=== PATIENT | male | born 1945 | race Caucasian/White ===

== ENCOUNTER 2018-09-28 15:56 | Inpatient (IN) | payer OTHER ==
[~2018-09-28] VITALS: Ht 170.2 cm; Wt 87.5 kg
[2018-09-28] MEDS ORDERED: NITROGLYCERIN SUBLINGUAL 0.4 MG BOTTLE OF 25. SL PRN ×2 (16:30→19:45)
[2018-09-28] MEDS ORDERED: ONDANSETRON PF 4 MG/2 ML VIAL. IV ONE (16:30)
[2018-09-28] MEDS ORDERED: ASPIRIN 325 MG TABLET PO ONE (16:30)
[2018-09-28 16:41] LABS: BASO # 0.1 x10^3/uL (0.0-0.2); BASO % 0 % (0-3); EOS # 0.2 x10^3/uL (0.0-0.7); EOS % 1 % (0-3); HEMATOCRIT 41.2 % (39.0-53.0); HEMOGLOBIN 13.8 g/dL (13.0-17.5); LYMPH # 3.4 x10^3/uL (1.0-4.8); LYMPH % 22 % (24-48); MEAN CORPUSCULAR HEMOGLOBIN 29 pg (25-35); MEAN CORPUSCULAR HGB CONC 34 g/dL (31-37); MEAN CORPUSCULAR VOLUME 85 fL (79-100); MONO # 0.8 x10^3/uL (0.0-1.1); MONO % 5 % (0-9); NEUT % 71 % (31-73); PLATELET COUNT 181 x10^3/uL (140-400); RED BLOOD COUNT 4.85 x10^6/uL (4.30-5.70); RED CELL DISTRIBUTION WIDTH 13.2 % (11.5-14.5); WHITE BLOOD COUNT 15.4 x10^3/uL (4.0-11.0)
[2018-09-28] MEDS ORDERED: IV NORMAL SALINE 1000ML BAG 1,000 ML IV ONE ×2 (16:45→20:00)
[2018-09-28] MEDS ORDERED: ASPIRIN CHEWABLE 81 MG TABLET. PO ONE (16:45)
[2018-09-28 16:51] LABS: PROTHROMBIN TIME PATIENT 14.4 SEC (11.7-14.0)
--- NOTE | 2018-09-28 16:56 | RAD ---
EXAM: CHEST 1 VIEW History: Difficulty breathing, midchest pain COMPARISON: None available. TECHNIQUE: Single portable radiograph of the chest FINDINGS: The cardiac silhouette is unremarkable. The lungs are clear bilaterally. The costophrenic sulci are clear and well demarcated. IMPRESSION: No radiographic evidence of an acute cardiopulmonary process. Electronically signed by: Dillan Gomez MD (09/28/2018 4:53 PM) [facility]
--- NOTE | 2018-09-28 16:58 | PHYS DOC ---
Past Medical History Past Medical History: Diabetes-Type II, Hypertension Past Surgical History: Other Additional Past Surgical Histo: SKIN GRAFT Alcohol Use: None Drug Use: None Adult General Chief Complaint Chief Complaint: CHEST PAIN HPI HPI Patient is a 73 year old male with history of diabetes to 2, hypertension, who presents today complaining of a sharp and constant 8 out of 10 right sided chest pain as well as epigastric abdominal pain that began 2 hours prior to coming to the ED. Patient is also complaining of nausea, vomiting, that began at the same time. Patient denies anything specifically exacerbating or relieving his symptoms. He states he did not take anything to relieve his symptoms Review of Systems Review of Systems Constitutional: Denies fever or chills [] Eyes: Denies change in visual acuity, redness, or eye pain [] HENT: Denies nasal congestion or sore throat [] Respiratory: Denies cough or shortness of breath [] Cardiovascular: Reports chest pain GI: Reports epigastric abdominal pain, nausea and vomiting, denies bloody stools or diarrhea [] : Denies dysuria or hematuria [] Musculoskeletal: Denies back pain or joint pain [] Integument: Denies rash or skin lesions [] Neurologic: Denies headache, focal weakness or sensory changes [] All other systems were reviewed and found to be within normal limits, except as documented in this note. Current Medications Current Medications Current Medications Medications (Trade) Dose Ordered Sig/Itz Start Time Stop Time Status Last Admin Dose Admin Aspirin (Bobbi Aspirin) 325 mg 1X ONCE 09/28/18 16:30 09/28/18 16:42 DC Aspirin (Children'S Aspirin) 324 mg 1X ONCE 09/28/18 16:45 09/28/18 16:46 DC 09/28/18 16:45 324 MG Nitroglycerin (Nitrostat) 0.4 mg PRN Q5MIN PRN 09/28/18 16:30 09/28/18 19:38 DC 09/28/18 16:35 0.4 MG Ondansetron HCl (Zofran) 4 mg 1X ONCE 09/28/18 16:30 09/28/18 16:42 DC 09/28/18 16:34 4 MG Sodium Chloride 1,000 ml @ 1,000 mls/hr 1X ONCE 09/28/18 16:45 09/28/18 17:44 DC 09/28/18 16:47 1,000 MLS/HR Allergies Allergies Allergies Coded Allergies Type Severity Reaction Last Updated Verified No Known Drug Allergies 09/28/18 No Physical Exam Physical Exam Constitutional: Pale appearing. Well developed, well nourished, HENT: Normocephalic, atraumatic, bilateral external ears normal, oropharynx moist, no oral exudates, nose normal. [] Eyes: PERRLA, EOMI, conjunctiva normal, no discharge. [] Neck: Normal range of motion, no tenderness, supple, no stridor. [] Cardiovascular:Heart rate regular rhythm, no murmur [] Lungs & Thorax: Bilateral breath sounds clear to auscultation [] Abdomen: Actively vomiting. Bowel sounds normal, soft, no tenderness, no masses , no pulsatile masses. [] Skin: Warm, dry, no erythema, no rash. [] Back: No tenderness, no CVA tenderness. [] Extremities: No tenderness, no cyanosis, no clubbing, ROM intact, no edema. [] Neurologic: Alert and oriented X 3, normal motor function, normal sensory function, no focal deficits noted. [] Psychologic: appears anxious Current Patient Data Vital Signs Vital Signs Date Time Temp Pulse Resp B/P (MAP) Pulse Ox O2 Delivery O2 Flow Rate FiO2 09/28/18 16:35 76 131/61 09/28/18 16:12 98.0 24 97 Room Air 98.0 Lab Values Laboratory Tests Test 09/28/18 16:28 09/28/18 16:54 White Blood Count 15.4 x10^3/uL (4.0-11.0) H Red Blood Count 4.85 x10^6/uL (4.30-5.70) Hemoglobin 13.8 g/dL (13.0-17.5) Hematocrit 41.2 % (39.0-53.0) Mean Corpuscular Volume 85 fL (79-100) Mean Corpuscular Hemoglobin 29 pg (25-35) Mean Corpuscular Hemoglobin Concent 34 g/dL (31-37) Red Cell Distribution Width 13.2 % (11.5-14.5) Platelet Count 181 x10^3/uL (140-400) Neutrophils (%) (Auto) 71 % (31-73) Lymphocytes (%) (Auto) 22 % (24-48) L Monocytes (%) (Auto) 5 % (0-9) Eosinophils (%) (Auto) 1 % (0-3) Basophils (%) (Auto) 0 % (0-3) Neutrophils # (Auto) 11.0 x10^3uL (1.8-7.7) H Lymphocytes # (Auto) 3.4 x10^3/uL (1.0-4.8) Monocytes # (Auto) 0.8 x10^3/uL (0.0-1.1) Eosinophils # (Auto) 0.2 x10^3/uL (0.0-0.7) Basophils # (Auto) 0.1 x10^3/uL (0.0-0.2) Prothrombin Time 14.4 SEC (11.7-14.0) H Prothrombin Time INR 1.2 (0.8-1.1) H Sodium Level 136 mmol/L (136-145) Potassium Level 5.2 mmol/L (3.5-5.1) H Chloride Level 100 mmol/L (98-107) Carbon Dioxide Level 25 mmol/L (21-32) Anion Gap 11 (6-14) Blood Urea Nitrogen 18 mg/dL (8-26) Creatinine 1.6 mg/dL (0.7-1.3) H Estimated GFR (Cockcroft-Gault) 42.5 BUN/Creatinine Ratio 11 (6-20) Glucose Level 258 mg/dL (70-99) H Calcium Level 9.1 mg/dL (8.5-10.1) Magnesium Level 1.5 mg/dL (1.8-2.4) L Total Bilirubin 2.1 mg/dL (0.2-1.0) H Aspartate Amino Transferase (AST) 165 U/L (15-37) H Alanine Aminotransferase (ALT) 106 U/L (16-63) H Alkaline Phosphatase 81 U/L (46-116) Creatine Kinase 119 U/L (39-308) Creatine Kinase MB (Mass) 1.9 ng/mL (0.0-3.6) Creatine Kinase MB Relative Index 1.6 % (0-4) Troponin I Quantitative < 0.017 ng/mL (0.000-0.055) IR-Wlq-F-Type Natriuretic Peptide 66 pg/mL (0-124) Total Protein 8.3 g/dL (6.4-8.2) H Albumin 4.3 g/dL (3.4-5.0) Albumin/Globulin Ratio 1.1 (1.0-1.7) Thyroid Stimulating Hormone (TSH) 3.481 uIU/mL (0.358-3.74) Ethyl Alcohol Level < 10 mg/dL (0-10) Influenza Type A Antigen Negative (NEGATIVE) Influenza Type B Antigen Negative (NEGATIVE) Laboratory Tests 09/28/18 16:28 Laboratory Tests 09/28/18 16: EKG EKG 16:[address] Almodovar sinus rhythm heart rate 76 no STEMI[] Radiology/Procedures Radiology/Procedures []PROCEDURE: ABDOMEN COMPLETE Abdominal ultrasound complete: Reason for examination: Chest pain with upper epigastric pain. The pancreas is poorly visualized due to bowel gas. The visualized portion of the inferior vena cava and aorta showed no gross abnormalities but the mid and distal abdominal aorta and distal inferior vena cava are poorly visualized. The liver shows diffuse fatty infiltration without a focal lesion and measures 17.2 cm in greatest dimension. The gallbladder shows wall thickening at 3.9 mm and tiny stones or sludge present. The common bile duct is normal in caliber at 5 mm. The right kidney measures 11.7 x 4.9 x 4.8 cm in greatest dimension. The left kidney measures 12.9 x 4.7 x 5.0 cm in greatest dimension. There appears be good cortical medullary differentiation bilaterally in the kidneys with no renal masses or hydronephrosis. The spleen is enlarged at 16.1 cm without a focal lesion. No free fluid is evident. IMPRESSION: Fatty infiltration of the liver without a focal lesion. Gallbladder wall thickening with small stones or sludge in the gallbladder. Enlarged spleen at 16.1 cm without a focal lesion. Electronically signed by: Tia Brown MD (09/28/2018 7:35 PM) [facility] DICTATED and SIGNED BY: TIA BROWN MD DATE: 09/28/181934 Course & Med Decision Making Course & Med Decision Making Pertinent Labs and Imaging studies reviewed. (See chart for details) This is a 73-year-old male patient presenting to the ED today with chest pain, nausea and vomiting. Symptoms began 2 hours ago. EKG is negative, troponin is normal, CBC with a WBC of 15.4, BUN 18, creatinine 1.6, glucose 258, anion gap is normal, bilirubin 2.1, AST 165, [id number], ALK is normal. Abdominal ultrasound-Fatty infiltration of the liver without a focal lesion. Gallbladder wall thickening with small stones or sludge in the gallbladder. Enlarged spleen at 16.1 cm without a focal lesion. Routine General surgery consult placed Routine consult placed for cardiology. Consulted with Dr. Rees who accepted patient for admission Dragon Disclaimer Dragon Disclaimer This electronic medical record was generated, in whole or in part, using a voice recognition dictation system. Departure Departure Impression: Primary Impression: Chest pain Additional Impressions: Transaminitis Nausea and vomiting Disposition: ADMITTED INPATIENT Condition: STABLE Referrals: UNKNOWN PCP NAME (PCP) JONAS REES MD Problem Qualifiers Primary Impression: Chest pain Chest pain type: unspecified Qualified Codes: R07.9 - Chest pain, unspecified Additional Impressions: Nausea and vomiting Vomiting type: unspecified Vomiting Intractability: unspecified Qualified Codes: R11.2 - Nausea with vomiting, unspecified JESUS LARES APRN Sep 28, 2018 16:57
[2018-09-28 17:00] LABS: CALCIUM 9.1 mg/dL (8.5-10.1); CREATININE 1.6 mg/dL (0.7-1.3); GFR 42.5; POTASSIUM 5.2 mmol/L (3.5-5.1)
[2018-09-28 17:05] LABS: ALBUMIN 4.3 g/dL (3.4-5.0); ALBUMIN/GLOBULIN RATIO 1.1 (1.0-1.7); MAGNESIUM 1.5 mg/dL (1.8-2.4); TOTAL BILIRUBIN 2.1 mg/dL (0.2-1.0); TOTAL PROTEIN 8.3 g/dL (6.4-8.2)
[2018-09-28 17:20] LABS: INFLUENZA A PATIENT NEGATIVE (NEGATIVE); INFLUENZA B PATIENT NEGATIVE (NEGATIVE)
--- NOTE | 2018-09-28 19:38 | RAD ---
Abdominal ultrasound complete: Reason for examination: Chest pain with upper epigastric pain. The pancreas is poorly visualized due to bowel gas. The visualized portion of the inferior vena cava and aorta showed no gross abnormalities but the mid and distal abdominal aorta and distal inferior vena cava are poorly visualized. The liver shows diffuse fatty infiltration without a focal lesion and measures 17.2 cm in greatest dimension. The gallbladder shows wall thickening at 3.9 mm and tiny stones or sludge present. The common bile duct is normal in caliber at 5 mm. The right kidney measures 11.7 x 4.9 x 4.8 cm in greatest dimension. The left kidney measures 12.9 x 4.7 x 5.0 cm in greatest dimension. There appears be good cortical medullary differentiation bilaterally in the kidneys with no renal masses or hydronephrosis. The spleen is enlarged at 16.1 cm without a focal lesion. No free fluid is evident. IMPRESSION: Fatty infiltration of the liver without a focal lesion. Gallbladder wall thickening with small stones or sludge in the gallbladder. Enlarged spleen at 16.1 cm without a focal lesion. Electronically signed by: Bárbara Rider MD (09/28/2018 7:35 PM) [facility]
[2018-09-28] MEDS ORDERED: MORPHINE SULFATE 4 MG/ML VIAL. IV PRN (19:45)
[2018-09-28] MEDS ORDERED: DEXTROSE 50% 25 GM / 50ML DISP.SYRIN. IV PRN (19:45)
[2018-09-28] MEDS ORDERED: ONDANSETRON PF 4 MG/2 ML VIAL. IV PRN (19:45)
[2018-09-28 20:15] VITALS: BP 131/61
[2018-09-28] MEDS ORDERED: METF850T8 PO (21:27)
[2018-09-28] MEDS ORDERED: LOSA100T14 PO (21:27)
[2018-09-28] MEDS ORDERED: GLIM4TAB2 PO (21:27)
[2018-09-28 23:54] VITALS: BP 109/53
[2018-09-29 03:35] VITALS: BP 100/51
[2018-09-29 04:21] LABS: BASO % 0 % (0-3); EOS % 0 % (0-3); HEMATOCRIT 35.3 % (39.0-53.0); LYMPH % 14 % (24-48); MEAN CORPUSCULAR HEMOGLOBIN 29 pg (25-35); MEAN CORPUSCULAR HGB CONC 34 g/dL (31-37); MEAN CORPUSCULAR VOLUME 85 fL (79-100); MONO # 1.1 x10^3/uL (0.0-1.1); MONO % 8 % (0-9); NEUT # 11.3 x10^3uL (1.8-7.7); NEUT % 78 % (31-73); PLATELET COUNT 127 x10^3/uL (140-400); RED BLOOD COUNT 4.13 x10^6/uL (4.30-5.70); RED CELL DISTRIBUTION WIDTH 13.2 % (11.5-14.5); WHITE BLOOD COUNT 14.4 x10^3/uL (4.0-11.0)
[2018-09-29 04:44] LABS: ALBUMIN 3.4 g/dL (3.4-5.0); CALCIUM 8.3 mg/dL (8.5-10.1); CREATININE 1.6 mg/dL (0.7-1.3); GFR 42.5; TOTAL BILIRUBIN 3.4 mg/dL (0.2-1.0); TOTAL PROTEIN 6.8 g/dL (6.4-8.2)
[2018-09-29] MEDS ORDERED: IV NORMAL SALINE 1000ML BAG 1,000 ML IV SCH (06:00)
--- NOTE | 2018-09-29 07:03 | EKG ---
[facility] [address] [place] [address] Test Date: 2018-09-28 Test Time: 16:26:10 Pat Name: RICHARD BAIRD Department: Room: 205 1 Gender: M Docket Clerk: : [id number] Requested By: JESUS LARES Order Number: [id number] Reading MD: Larry Edwards MD Measurements Intervals [place] Rate: 76 P: 28 CT: 174 QRS: -7 QRSD: 88 T: 24 QT: 358 QTc: 407 Interpretive Statements SINUS RHYTHM LEFTWARD AXIS QRS(T) CONTOUR ABNORMALITY CONSIDER INFERIOR INFARCT POSSIBLY ABNORMAL ECG Electronically Signed On 09-29-2018 23:24:02 CDT by Larry Edwards MD
[2018-09-29 07:30] VITALS: BP 108/55
[2018-09-29] MEDS: INSULIN LISPRO 300 UNITS/3 ML INSULN.PEN. SQ SCH ×4 (07:30→21:00)
[2018-09-29] MEDS ORDERED: INSULIN LISPRO 300 UNITS/3 ML INSULN.PEN. SQ SCH (08:00)
--- NOTE | 2018-09-29 08:14 | PDOC2 ---
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 Associated nausea and emesis. Happened after pastrami sandwich. No similar symptoms in past. No constipation or diarrhea. no radiating back pain Past Medical History Cardiovascular: HTN GI: GERD Endocrine: Diabetes Past Surgical History Past Surgical History: No pertinent history Family History Family History: Other (CHF) Social History Quit ALCOHOL: occassional Drugs: None Lives: Alone Current Problem List Problem List Problems Medical Problems: (1) Chest pain Status: Acute (2) Nausea and vomiting Status: Acute (3) Transaminitis Status: Acute Current Medications Current Medications Current Medications Aspirin (Bobbi Aspirin) 325 mg 1X ONCE PO ; Start 09/28/18 at 16:30; Stop 09/28 at 16:42; Status DC Nitroglycerin (Nitrostat) 0.4 mg PRN Q5MIN PRN SL CP RATING > 1/10 Last administered on 09/28/18at 16:35; Start 09/28/18 at 16:30; Stop 09/28/18 at 19:38 ; Status DC Ondansetron HCl (Zofran) 4 mg 1X ONCE IV Last administered on 09/28/18at 16:34 ; Start 09/28/18 at 16:30; Stop 09/28/18 at 16:42; Status DC Sodium Chloride 1,000 ml @ 1,000 mls/hr 1X ONCE IV Last administered on at 16:47; Start 09/28/18 at 16:45; Stop 09/28/18 at 17:44; Status DC Aspirin (Children'S Aspirin) 324 mg 1X ONCE PO Last administered on 09/28/18at 16:45; Start 09/28/18 at 16:45; Stop 09/28/18 at 16:46; Status DC Ondansetron HCl (Zofran) 4 mg PRN Q8HRS PRN IV NAUSEA/VOMITING; Start 09/28/18 at 19:45; Stop 09/29/18 at 19:44 Morphine Sulfate (Morphine Sulfate) 4 mg PRN Q2HR PRN IV PAIN; Start 09/28/18 at 19:45; Stop 09/29/18 at 19:44 Nitroglycerin (Nitrostat) 0.4 mg PRN Q5MIN PRN SL CHEST PAIN; Start 09/28/18 at 19:45; Stop 09/29/18 at 19:44 Insulin Human Lispro (HumaLOG) 0-5 UNITS TIDWMEALS SQ ; Start 09/29/18 at 08:00 ; Stop 09/29/18 at 08:00; Status DC Dextrose (Dextrose 50%-Water Syringe) 12.5 gm PRN Q15MIN PRN IV SEE COMMENTS; Start 09/28/18 at 19:45 Sodium Chloride 1,000 ml @ 125 mls/hr 1X ONCE IV Last administered on at 20:55; Start 09/28/18 at 20:00; Stop 09/29/18 at 03:59; Status DC Insulin Human Lispro (HumaLOG) 0-12 UNITS QIDACHS SQ ; Start 09/29/18 at 07:30 Sodium Chloride 1,000 ml @ 100 mls/hr Q10H IV Last administered on 09/29/18at 07:28; Start 09/29/18 at 06:00; Stop 09/29/18 at 15:59 Active Scripts Active Reported Glimepiride 4 Mg Tablet 1 Tab PO DAILY Metformin Hcl 850 Mg Tablet 850 Mg PO BIDWMEALS Losartan Potassium 100 Mg Tablet 100 Mg PO DAILY Allergies Allergies: Coded Allergies: No Known Drug Allergies (Unverified , 09/28/18) ROS General: No: Chills, Other (chills) PSYCHOLOGICAL ROS: No: Anxiety, Depression Eyes: No Blurry vision, No Double vision HEENT: No: Heacaches, Sore Throat Hematological and Lymphatic: No: Bleeding Problems, Blood Clots Respiratory: No: Cough, Shortness of breath Cardiovascular: yes Chest Pain; No Palpitations Gastrointestinal: Yes Other (see hpi) Genitourinary: No Dysuria, No Hematuria Musculoskeletal: No Joint Pain, No Muscle Pain Neurological: No Confusion, No Numbness/Tingling Skin: No Pruritus, No Rash Physical Exam General: Alert, Oriented X3, Cooperative, No acute distress HEENT: PERRLA, Mucous membr. moist/pink Lungs: Clear to auscultation, Normal air movement Heart: Regular rate, Normal S1, Normal S2, No murmurs Abdomen: Soft, No tenderness, Other (ND) Extremities: No clubbing, No cyanosis Skin: No rashes, No breakdown Neuro: Normal gait, Normal speech Psych/Mental Status: Mental status NL, Mood NL MUSCULOSKELETAL: No deformity, No swelling Vitals VITALS Vital Signs Date Time Temp Pulse Resp B/P (MAP) Pulse Ox O2 Delivery O2 Flow Rate FiO2 09/29/18 03:35 99.0 86 18 100/51 (67) 96 Room Air 99.0 Labs Labs Laboratory Tests Test 09/28/18 16:28 09/28/18 16:54 09/28/18 21:34 09/29/18 03:25 White Blood Count 15.4 x10^3/uL (4.0-11.0) 14.4 x10^3/uL (4.0-11.0) Red Blood Count 4.85 x10^6/uL (4.30-5.70) 4.13 x10^6/uL (4.30-5.70) Hemoglobin 13.8 g/dL (13.0-17.5) 12.0 g/dL (13.0-17.5) Hematocrit 41.2 % (39.0-53.0) 35.3 % (39.0-53.0) Mean Corpuscular Volume 85 fL (79-100) 85 fL (79-100) Mean Corpuscular Hemoglobin 29 pg (25-35) 29 pg (25-35) Mean Corpuscular Hemoglobin Concent 34 g/dL (31-37) 34 g/dL (31-37) Red Cell Distribution Width 13.2 % (11.5-14.5) 13.2 % (11.5-14.5) Platelet Count 181 x10^3/uL (140-400) 127 x10^3/uL (140-400) Neutrophils (%) (Auto) 71 % (31-73) 78 % (31-73) Lymphocytes (%) (Auto) 22 % (24-48) 14 % (24-48) Monocytes (%) (Auto) 5 % (0-9) 8 % (0-9) Eosinophils (%) (Auto) 1 % (0-3) 0 % (0-3) Basophils (%) (Auto) 0 % (0-3) 0 % (0-3) Neutrophils # (Auto) 11.0 x10^3uL (1.8-7.7) 11.3 x10^3uL (1.8-7.7) Lymphocytes # (Auto) 3.4 x10^3/uL (1.0-4.8) 2.0 x10^3/uL (1.0-4.8) Monocytes # (Auto) 0.8 x10^3/uL (0.0-1.1) 1.1 x10^3/uL (0.0-1.1) Eosinophils # (Auto) 0.2 x10^3/uL (0.0-0.7) 0.0 x10^3/uL (0.0-0.7) Basophils # (Auto) 0.1 x10^3/uL (0.0-0.2) 0.0 x10^3/uL (0.0-0.2) Prothrombin Time 14.4 SEC (11.7-14.0) Prothromb Time International Ratio 1.2 (0.8-1.1) Sodium Level 136 mmol/L (136-145) 142 mmol/L (136-145) Potassium Level 5.2 mmol/L (3.5-5.1) 4.0 mmol/L (3.5-5.1) Chloride Level 100 mmol/L (98-107) 106 mmol/L (98-107) Carbon Dioxide Level 25 mmol/L (21-32) 23 mmol/L (21-32) Anion Gap 11 (6-14) 13 (6-14) Blood Urea Nitrogen 18 mg/dL (8-26) 19 mg/dL (8-26) Creatinine 1.6 mg/dL (0.7-1.3) 1.6 mg/dL (0.7-1.3) Estimated GFR (Cockcroft-Gault) 42.5 42.5 BUN/Creatinine Ratio 11 (6-20) 12 (6-20) Glucose Level 258 mg/dL (70-99) 179 mg/dL (70-99) Calcium Level 9.1 mg/dL (8.5-10.1) 8.3 mg/dL (8.5-10.1) Magnesium Level 1.5 mg/dL (1.8-2.4) Total Bilirubin 2.1 mg/dL (0.2-1.0) 3.4 mg/dL (0.2-1.0) Aspartate Amino Transf (AST/SGOT) 165 U/L (15-37) 135 U/L (15-37) Alanine Aminotransferase (ALT/SGPT) 106 U/L (16-63) 151 U/L (16-63) Alkaline Phosphatase 81 U/L (46-116) 70 U/L (46-116) Creatine Kinase 119 U/L (39-308) Creatine Kinase MB (Mass) 1.9 ng/mL (0.0-3.6) Creatine Kinase MB Relative Index 1.6 % (0-4) Troponin I Quantitative < 0.017 ng/mL (0.000-0.055) < 0.017 ng/mL (0.000-0.055) GR-Nnx-D-Type Natriuretic Peptide 66 pg/mL (0-124) Total Protein 8.3 g/dL (6.4-8.2) 6.8 g/dL (6.4-8.2) Albumin 4.3 g/dL (3.4-5.0) 3.4 g/dL (3.4-5.0) Albumin/Globulin Ratio 1.1 (1.0-1.7) 1.0 (1.0-1.7) Thyroid Stimulating Hormone (TSH) 3.481 uIU/mL (0.358-3.74) Ethyl Alcohol Level < 10 mg/dL (0-10) Influenza Type A Antigen Negative (NEGATIVE) Influenza Type B Antigen Negative (NEGATIVE) Glucose (Fingerstick) 205 mg/dL (70-99) Test 09/29/18 07:36 Glucose (Fingerstick) 158 mg/dL (70-99) Laboratory Tests Test 09/28/18 16:28 09/28/18 16:54 09/28/18 21:34 09/29/18 03:25 White Blood Count 15.4 x10^3/uL (4.0-11.0) 14.4 x10^3/uL (4.0-11.0) Red Blood Count 4.85 x10^6/uL (4.30-5.70) 4.13 x10^6/uL (4.30-5.70) Hemoglobin 13.8 g/dL (13.0-17.5) 12.0 g/dL (13.0-17.5) Hematocrit 41.2 % (39.0-53.0) 35.3 % (39.0-53.0) Mean Corpuscular Volume 85 fL (79-100) 85 fL (79-100) Mean Corpuscular Hemoglobin 29 pg (25-35) 29 pg (25-35) Mean Corpuscular Hemoglobin Concent 34 g/dL (31-37) 34 g/dL (31-37) Red Cell Distribution Width 13.2 % (11.5-14.5) 13.2 % (11.5-14.5) Platelet Count 181 x10^3/uL (140-400) 127 x10^3/uL (140-400) Neutrophils (%) (Auto) 71 % (31-73) 78 % (31-73) Lymphocytes (%) (Auto) 22 % (24-48) 14 % (24-48) Monocytes (%) (Auto) 5 % (0-9) 8 % (0-9) Eosinophils (%) (Auto) 1 % (0-3) 0 % (0-3) Basophils (%) (Auto) 0 % (0-3) 0 % (0-3) Neutrophils # (Auto) 11.0 x10^3uL (1.8-7.7) 11.3 x10^3uL (1.8-7.7) Lymphocytes # (Auto) 3.4 x10^3/uL (1.0-4.8) 2.0 x10^3/uL (1.0-4.8) Monocytes # (Auto) 0.8 x10^3/uL (0.0-1.1) 1.1 x10^3/uL (0.0-1.1) Eosinophils # (Auto) 0.2 x10^3/uL (0.0-0.7) 0.0 x10^3/uL (0.0-0.7) Basophils # (Auto) 0.1 x10^3/uL (0.0-0.2) 0.0 x10^3/uL (0.0-0.2) Prothrombin Time 14.4 SEC (11.7-14.0) Prothromb Time International Ratio 1.2 (0.8-1.1) Sodium Level 136 mmol/L (136-145) 142 mmol/L (136-145) Potassium Level 5.2 mmol/L (3.5-5.1) 4.0 mmol/L (3.5-5.1) Chloride Level 100 mmol/L (98-107) 106 mmol/L (98-107) Carbon Dioxide Level 25 mmol/L (21-32) 23 mmol/L (21-32) Anion Gap 11 (6-14) 13 (6-14) Blood Urea Nitrogen 18 mg/dL (8-26) 19 mg/dL (8-26) Creatinine 1.6 mg/dL (0.7-1.3) 1.6 mg/dL (0.7-1.3) Estimated GFR (Cockcroft-Gault) 42.5 42.5 BUN/Creatinine Ratio 11 (6-20) 12 (6-20) Glucose Level 258 mg/dL (70-99) 179 mg/dL (70-99) Calcium Level 9.1 mg/dL (8.5-10.1) 8.3 mg/dL (8.5-10.1) Magnesium Level 1.5 mg/dL (1.8-2.4) Total Bilirubin 2.1 mg/dL (0.2-1.0) 3.4 mg/dL (0.2-1.0) Aspartate Amino Transf (AST/SGOT) 165 U/L (15-37) 135 U/L (15-37) Alanine Aminotransferase (ALT/SGPT) 106 U/L (16-63) 151 U/L (16-63) Alkaline Phosphatase 81 U/L (46-116) 70 U/L (46-116) Creatine Kinase 119 U/L (39-308) Creatine Kinase MB (Mass) 1.9 ng/mL (0.0-3.6) Creatine Kinase MB Relative Index 1.6 % (0-4) Troponin I Quantitative < 0.017 ng/mL (0.000-0.055) < 0.017 ng/mL (0.000-0.055) NO-Onl-B-Type Natriuretic Peptide 66 pg/mL (0-124) Total Protein 8.3 g/dL (6.4-8.2) 6.8 g/dL (6.4-8.2) Albumin 4.3 g/dL (3.4-5.0) 3.4 g/dL (3.4-5.0) Albumin/Globulin Ratio 1.1 (1.0-1.7) 1.0 (1.0-1.7) Thyroid Stimulating Hormone (TSH) 3.481 uIU/mL (0.358-3.74) Ethyl Alcohol Level < 10 mg/dL (0-10) Influenza Type A Antigen Negative (NEGATIVE) Influenza Type B Antigen Negative (NEGATIVE) Glucose (Fingerstick) 205 mg/dL (70-99) Test 09/29/18 07:36 Glucose (Fingerstick) 158 mg/dL (70-99) Assessment/Plan Assessment/Plan chest pain, epigastric pain cholelithiasis , elevated LFTS, T bili 3.4--GI consult pending SHYLA, DM/hyperglycemia routine cardiac eval pending consider lap suraj once above managed-will review with KAILEE Corey MD 09/29/18 0906: CONSULT Assessment/Plan Assessment/Plan Patient seen and examined by me currently not having much pain no nausea or vomiting the last 24 hours. Abdomen is soft nontender nondistended. Ultrasound reviewed showing cholelithiasis. We'll plan for laparoscopic cholecystectomy after being evaluated by cardiology and GI and in their recommendations. Agree with Jd assessment and plan SUZI HICKS APRN Sep 29, 2018 08:14 KAILEE PEÑA MD Sep 29, 2018 09:06
--- NOTE | 2018-09-29 09:41 | PDOC2 ---
GI CONSULT Reason For Consult: elevated LFTs HPI: HPI: 73 y/o male admitted through ER. Ill since yesterday afternoon after eating a pepperoni sandwich that he prepared at home. Sharp epigastric/substernal pain - has occurred in the past but more of just a "discomfort" then. Associated w/ n/v. Feels better now. Labs: WBC 15.4 (14.4 now), Hgb 13.8 (12 now), plt 127, INR 1.2, Cr 1.6, bili 2.1 (now 3.4), AST 165 (now 135), ALT 106 (now 151), Alk Phos 81 (now 70). Abd US: GB wall thickening w/ stone/sludge, CBD 5mm. Denies heartburn/reflux, dysphagia, hematemesis, diarrhea, constipation, hematochezia, melena, or weight loss. Normal stool yesterday morning. No previous EGD. Thinks had a colonoscopy w/ polyps ~5 years ago (but says at [facility]). Can document colonoscopy in 1999 w/ diverticulosis and hemorrhoids. Has been seen in our office for epigastric pain. Fatty liver and splenomegaly on imaging. Unaware of GB, liver, pancreas, or PUD history. Takes occasional ASA, no NSAIDs. PMH: PMH: HTN, DM, OA, diverticulosis, hemorrhoids cataract removal FH: Family History: Other (daughter - GB disease) Social History: Smoke: Quit ALCOHOL: rare Drugs: None ROS: GEN: Denies fevers, chills, sweats HEENT: Denies blurred vision, sore throat CV: +chest pain RESP: Denies shortness of air, cough GI: Per HPI : Denies hematuria, dysuria ENDO: Denies weight changes NEURO: Denies confusion, dizziness MSK: Denies weakness, joint pain/swelling SKIN: Denies jaundice, pruritus Vitals: Vitals: Vital Signs Date Time Temp Pulse Resp B/P (MAP) Pulse Ox O2 Delivery O2 Flow Rate FiO2 09/29/18 08:09 Room Air 09/29/18 07:30 97.3 79 20 108/55 (72) 96 97.3 Labs: Labs: Laboratory Tests Test 09/28/18 16:28 09/28/18 16:54 09/28/18 21:34 3/18/19 03:25 White Blood Count 15.4 x10^3/uL (4.0-11.0) 14.4 x10^3/uL (4.0-11.0) Red Blood Count 4.85 x10^6/uL (4.30-5.70) 4.13 x10^6/uL (4.30-5.70) Hemoglobin 13.8 g/dL (13.0-17.5) 12.0 g/dL (13.0-17.5) Hematocrit 41.2 % (39.0-53.0) 35.3 % (39.0-53.0) Mean Corpuscular Volume 85 fL (79-100) 85 fL (79-100) Mean Corpuscular Hemoglobin 29 pg (25-35) 29 pg (25-35) Mean Corpuscular Hemoglobin Concent 34 g/dL (31-37) 34 g/dL (31-37) Red Cell Distribution Width 13.2 % (11.5-14.5) 13.2 % (11.5-14.5) Platelet Count 181 x10^3/uL (140-400) 127 x10^3/uL (140-400) Neutrophils (%) (Auto) 71 % (31-73) 78 % (31-73) Lymphocytes (%) (Auto) 22 % (24-48) 14 % (24-48) Monocytes (%) (Auto) 5 % (0-9) 8 % (0-9) Eosinophils (%) (Auto) 1 % (0-3) 0 % (0-3) Basophils (%) (Auto) 0 % (0-3) 0 % (0-3) Neutrophils # (Auto) 11.0 x10^3uL (1.8-7.7) 11.3 x10^3uL (1.8-7.7) Lymphocytes # (Auto) 3.4 x10^3/uL (1.0-4.8) 2.0 x10^3/uL (1.0-4.8) Monocytes # (Auto) 0.8 x10^3/uL (0.0-1.1) 1.1 x10^3/uL (0.0-1.1) Eosinophils # (Auto) 0.2 x10^3/uL (0.0-0.7) 0.0 x10^3/uL (0.0-0.7) Basophils # (Auto) 0.1 x10^3/uL (0.0-0.2) 0.0 x10^3/uL (0.0-0.2) Prothrombin Time 14.4 SEC (11.7-14.0) Prothromb Time International Ratio 1.2 (0.8-1.1) Sodium Level 136 mmol/L (136-145) 142 mmol/L (136-145) Potassium Level 5.2 mmol/L (3.5-5.1) 4.0 mmol/L (3.5-5.1) Chloride Level 100 mmol/L (98-107) 106 mmol/L (98-107) Carbon Dioxide Level 25 mmol/L (21-32) 23 mmol/L (21-32) Anion Gap 11 (6-14) 13 (6-14) Blood Urea Nitrogen 18 mg/dL (8-26) 19 mg/dL (8-26) Creatinine 1.6 mg/dL (0.7-1.3) 1.6 mg/dL (0.7-1.3) Estimated GFR (Cockcroft-Gault) 42.5 42.5 BUN/Creatinine Ratio 11 (6-20) 12 (6-20) Glucose Level 258 mg/dL (70-99) 179 mg/dL (70-99) Calcium Level 9.1 mg/dL (8.5-10.1) 8.3 mg/dL (8.5-10.1) Magnesium Level 1.5 mg/dL (1.8-2.4) Total Bilirubin 2.1 mg/dL (0.2-1.0) 3.4 mg/dL (0.2-1.0) Aspartate Amino Transf (AST/SGOT) 165 U/L (15-37) 135 U/L (15-37) Alanine Aminotransferase (ALT/SGPT) 106 U/L (16-63) 151 U/L (16-63) Alkaline Phosphatase 81 U/L (46-116) 70 U/L (46-116) Creatine Kinase 119 U/L (39-308) Creatine Kinase MB (Mass) 1.9 ng/mL (0.0-3.6) Creatine Kinase MB Relative Index 1.6 % (0-4) Troponin I Quantitative < 0.017 ng/mL (0.000-0.055) < 0.017 ng/mL (0.000-0.055) RO-Mkh-G-Type Natriuretic Peptide 66 pg/mL (0-124) Total Protein 8.3 g/dL (6.4-8.2) 6.8 g/dL (6.4-8.2) Albumin 4.3 g/dL (3.4-5.0) 3.4 g/dL (3.4-5.0) Albumin/Globulin Ratio 1.1 (1.0-1.7) 1.0 (1.0-1.7) Thyroid Stimulating Hormone (TSH) 3.481 uIU/mL (0.358-3.74) Ethyl Alcohol Level < 10 mg/dL (0-10) Influenza Type A Antigen Negative (NEGATIVE) Influenza Type B Antigen Negative (NEGATIVE) Glucose (Fingerstick) 205 mg/dL (70-99) Lipase 483 U/L (73-393) Test 09/29/18 07:36 Glucose (Fingerstick) 158 mg/dL (70-99) Allergies: Coded Allergies: No Known Drug Allergies (Unverified , 09/28/18) Medications: Current Medications Medications (Trade) Dose Ordered Sig/Itz Route PRN Reason Start Time Stop Time Status Last Admin Dose Admin Nitroglycerin (Nitrostat) 0.4 mg PRN Q5MIN PRN SL CP RATING > 1/10 09/28/18 16:30 09/28/18 19:38 DC 09/28/18 16:35 Ondansetron HCl (Zofran) 4 mg 1X ONCE IV 09/28/18 16:30 09/28/18 16:42 DC 09/28/18 16:34 Sodium Chloride 1,000 ml @ 1,000 mls/hr 1X ONCE IV 09/28/18 16:45 09/28/18 17:44 DC 09/28/18 16:47 Aspirin (Children'S Aspirin) 324 mg 1X ONCE PO 09/28/18 16:45 09/28/18 16:46 DC 09/28/18 16:45 Sodium Chloride 1,000 ml @ 125 mls/hr 1X ONCE IV 09/28/18 20:00 09/29/18 03:59 DC 09/28/18 20:55 Sodium Chloride 1,000 ml @ 100 mls/hr Q10H IV 09/29/18 06:00 09/29/18 15:59 09/29/18 07:28 Imaging: Imaging: CXR IMPRESSION: No radiographic evidence of an acute cardiopulmonary process. Abd US The pancreas is poorly visualized due to bowel gas. The visualized portion of the inferior vena cava and aorta showed no gross abnormalities but the mid and distal abdominal aorta and distal inferior vena cava are poorly visualized. The liver shows diffuse fatty infiltration without a focal lesion and measures 17.2 cm in greatest dimension. The gallbladder shows wall thickening at 3.9 mm and tiny stones or sludge present. The common bile duct is normal in caliber at 5 mm. The right kidney measures 11.7 x 4.9 x 4.8 cm in greatest dimension. The left kidney measures 12.9 x 4.7 x 5.0 cm in greatest dimension. There appears be good cortical medullary differentiation bilaterally in the kidneys with no renal masses or hydronephrosis. The spleen is enlarged at 16.1 cm without a focal lesion. No free fluid is evident. IMPRESSION: Fatty infiltration of the liver without a focal lesion. Gallbladder wall thickening with small stones or sludge in the gallbladder. Enlarged spleen at 16.1 cm without a focal lesion. PE: GEN: NAD HEENT: Atraumatic, PERRL LUNGS: CTAB HEART: RRR ABD: NABS, S/ND/NT EXTREMITY: No edema SKIN: No rashes, no jaundice NEURO/PSYCH: A & O 3 A/P: A/P: Epigastric/substernal pain, n/v Leukocytosis, thrombocytopenia, abnormal LFTs, ?SHYLA GB wall thickening, gallstones/sludge, hepatic steatosis, splenomegaly CRC screen - ?last in 1999 Diverticulosis, hemorrhoids -- Symptoms improved. CBD WNL on US. Check MRCP. Surgery and cardiology following. KENNY LEOS Sep 29, 2018 09:41
--- NOTE | 2018-09-29 10:15 | PDOC2 ---
JAMES KAMARA APPLICATION HELPER 09/29/18 1015: CARDIAC CONSULT DATE OF CONSULT Date of Consult DATE: 09/29/18 TIME: 09:47 REASON FOR CONSULT Reason for Consult: right sided chest pain REFERRING PHYSICIAN Referring Physician: Negrita SOURCE Source: Chart review, Patient HISTORY OF PRESENT ILLNESS HISTORY OF PRESENT ILLNESS This is a pleasant 73 yo male admitted for complains of lower chest pain. Pt reports that he was eating pastrami at noon yesterday and after that he started having lower sternal sharp pain pain and extending to epigastric region. No radiation. Reports that he felt nauseated after that then vomited. No SOA during this episode but felt he could not take a deep breath due to the pain. No exertional CP no SOA with his ADLs. No prior hx of falls, injury, VTE nor CAD. No diarrhea and no prior fever till he was admitted. His BG runs about 150 -160 at home and compliant with his DM meds but not with diet. PAST MEDICAL HISTORY Cardiovascular: HTN Pulmonary: No pertinent hx CENTRAL NERVOUS SYSTEM: Other (No pertinent history) GI: No pertinent hx Heme/Onc: No pertinent hx Hepatobiliary: No pertinent hx Psych: No pertinent hx Musculoskeletal: Osteoarthritis Rheumatologic: No pertinent hx Infectious disease: No pertinent hx ENT: No pertinent hx Renal/: No pertinent hx Endocrine: Diabetes (2) Dermatology: No pertinent hx PAST SURGICAL HISTORY Past Surgical History: Cataract Removal (right) FAMILY HISTORY Family History: Heart Disease (mother) SOCIAL HISTORY Smoke: Quit (1979 <20 PK YR) ALCOHOL: occassional Drugs: None Lives: with Family CURRENT MEDICATIONS CURRENT MEDICATIONS Current Medications Medications (Trade) Dose Ordered Sig/Itz Route PRN Reason Start Time Stop Time Status Last Admin Dose Admin Nitroglycerin (Nitrostat) 0.4 mg PRN Q5MIN PRN SL CP RATING > 1/10 09/28/18 16:30 09/28/18 19:38 DC 09/28/18 16:35 Ondansetron HCl (Zofran) 4 mg 1X ONCE IV 09/28/18 16:30 09/28/18 16:42 DC 09/28/18 16:34 Sodium Chloride 1,000 ml @ 1,000 mls/hr 1X ONCE IV 09/28/18 16:45 09/28/18 17:44 DC 09/28/18 16:47 Aspirin (Children'S Aspirin) 324 mg 1X ONCE PO 09/28/18 16:45 09/28/18 16:46 DC 09/28/18 16:45 Sodium Chloride 1,000 ml @ 125 mls/hr 1X ONCE IV 09/28/18 20:00 09/29/18 03:59 DC 09/28/18 20:55 Sodium Chloride 1,000 ml @ 100 mls/hr Q10H IV 09/29/18 06:00 09/29/18 15:59 09/29/18 07:28 ALLERGIES ALLERGIES: Coded Allergies: No Known Drug Allergies (Unverified , 09/28/18) ROS Review of System 14 point ROS evaluated with pertinent positives noted per HPI PHYSICAL EXAM General: Alert, Oriented X3, Cooperative, No acute distress HEENT: Atraumatic, Mucous membr. moist/pink Lungs: Clear to auscultation, Normal air movement Heart: Regular rate (SR no ectopies), Normal S1, Normal S2, No murmurs Abdomen: Soft, No tenderness Extremities: No cyanosis, No edema Skin: No breakdown, No significant lesion Neuro: Normal speech, Sensation intact Psych/Mental Status: Mental status NL, Mood NL MUSCULOSKELETAL: Osteoarthritic changes both hands VITALS VITALS Vital Signs Date Time Temp Pulse Resp B/P (MAP) Pulse Ox O2 Delivery O2 Flow Rate FiO2 09/29/18 08:09 Room Air 09/29/18 07:30 97.3 79 20 108/55 (72) 96 97.3 LABS Lab: Laboratory Tests Test 09/28/18 16:28 09/28/18 16:54 09/28/18 21:34 09/29/18 03:25 White Blood Count 15.4 x10^3/uL (4.0-11.0) 14.4 x10^3/uL (4.0-11.0) Red Blood Count 4.85 x10^6/uL (4.30-5.70) 4.13 x10^6/uL (4.30-5.70) Hemoglobin 13.8 g/dL (13.0-17.5) 12.0 g/dL (13.0-17.5) Hematocrit 41.2 % (39.0-53.0) 35.3 % (39.0-53.0) Mean Corpuscular Volume 85 fL (79-100) 85 fL (79-100) Mean Corpuscular Hemoglobin 29 pg (25-35) 29 pg (25-35) Mean Corpuscular Hemoglobin Concent 34 g/dL (31-37) 34 g/dL (31-37) Red Cell Distribution Width 13.2 % (11.5-14.5) 13.2 % (11.5-14.5) Platelet Count 181 x10^3/uL (140-400) 127 x10^3/uL (140-400) Neutrophils (%) (Auto) 71 % (31-73) 78 % (31-73) Lymphocytes (%) (Auto) 22 % (24-48) 14 % (24-48) Monocytes (%) (Auto) 5 % (0-9) 8 % (0-9) Eosinophils (%) (Auto) 1 % (0-3) 0 % (0-3) Basophils (%) (Auto) 0 % (0-3) 0 % (0-3) Neutrophils # (Auto) 11.0 x10^3uL (1.8-7.7) 11.3 x10^3uL (1.8-7.7) Lymphocytes # (Auto) 3.4 x10^3/uL (1.0-4.8) 2.0 x10^3/uL (1.0-4.8) Monocytes # (Auto) 0.8 x10^3/uL (0.0-1.1) 1.1 x10^3/uL (0.0-1.1) Eosinophils # (Auto) 0.2 x10^3/uL (0.0-0.7) 0.0 x10^3/uL (0.0-0.7) Basophils # (Auto) 0.1 x10^3/uL (0.0-0.2) 0.0 x10^3/uL (0.0-0.2) Prothrombin Time 14.4 SEC (11.7-14.0) Prothromb Time International Ratio 1.2 (0.8-1.1) Sodium Level 136 mmol/L (136-145) 142 mmol/L (136-145) Potassium Level 5.2 mmol/L (3.5-5.1) 4.0 mmol/L (3.5-5.1) Chloride Level 100 mmol/L (98-107) 106 mmol/L (98-107) Carbon Dioxide Level 25 mmol/L (21-32) 23 mmol/L (21-32) Anion Gap 11 (6-14) 13 (6-14) Blood Urea Nitrogen 18 mg/dL (8-26) 19 mg/dL (8-26) Creatinine 1.6 mg/dL (0.7-1.3) 1.6 mg/dL (0.7-1.3) Estimated GFR (Cockcroft-Gault) 42.5 42.5 BUN/Creatinine Ratio 11 (6-20) 12 (6-20) Glucose Level 258 mg/dL (70-99) 179 mg/dL (70-99) Calcium Level 9.1 mg/dL (8.5-10.1) 8.3 mg/dL (8.5-10.1) Magnesium Level 1.5 mg/dL (1.8-2.4) Total Bilirubin 2.1 mg/dL (0.2-1.0) 3.4 mg/dL (0.2-1.0) Aspartate Amino Transf (AST/SGOT) 165 U/L (15-37) 135 U/L (15-37) Alanine Aminotransferase (ALT/SGPT) 106 U/L (16-63) 151 U/L (16-63) Alkaline Phosphatase 81 U/L (46-116) 70 U/L (46-116) Creatine Kinase 119 U/L (39-308) Creatine Kinase MB (Mass) 1.9 ng/mL (0.0-3.6) Creatine Kinase MB Relative Index 1.6 % (0-4) Troponin I Quantitative < 0.017 ng/mL (0.000-0.055) < 0.017 ng/mL (0.000-0.055) SQ-Adj-A-Type Natriuretic Peptide 66 pg/mL (0-124) Total Protein 8.3 g/dL (6.4-8.2) 6.8 g/dL (6.4-8.2) Albumin 4.3 g/dL (3.4-5.0) 3.4 g/dL (3.4-5.0) Albumin/Globulin Ratio 1.1 (1.0-1.7) 1.0 (1.0-1.7) Thyroid Stimulating Hormone (TSH) 3.481 uIU/mL (0.358-3.74) Ethyl Alcohol Level < 10 mg/dL (0-10) Influenza Type A Antigen Negative (NEGATIVE) Influenza Type B Antigen Negative (NEGATIVE) Glucose (Fingerstick) 205 mg/dL (70-99) Lipase 483 U/L (73-393) Test 09/29/18 07:36 Glucose (Fingerstick) 158 mg/dL (70-99) ASSESSMENT/PLAN ASSESSMENT/PLAN 1. Atypical CP: noncardiac, related to GI 2. FLD/transaminitis/GB disease/splenomegaly: MRCP pending 3. HTN: controlled 4. DM2 5. Hypomagnesemia 6. CKD? Recommendations 1. Lipids, A1C, recheck Mg. No noted statin to his regimen. dietitian consult for DM diet compliance. 2. No further cardiac w/u, GI/GS following 3. If chest pain persist post hospitalization then outpt stress test is a consideration with his risk factors. CLAIRE CAMERON MD 09/29/18 2325: CARDIAC CONSULT ASSESSMENT/PLAN ASSESSMENT/PLAN Pt. seen and examined. Agree with above Stunner note. Atypical symptoms. EKG abnormal with suggestion of prior infarct. No ischemia. Normal trop. He has no baseline functional symptoms. Does exertional activities w/o problems. Would be deemed low risk for lap suraj. thanks Consider outpt stress testing based on symptoms. JAMES KAMARA APRN Sep 29, 2018 10:15 CLAIRE CAMERON MD Sep 29, 2018 23:25
[2018-09-29 10:32] LABS: CHOLESTEROL/HDL RATIO 4.4
[2018-09-29 10:41] VITALS: BP 130/60
--- NOTE | 2018-09-29 11:37 | NUR ---
SS following for discharge planning. SS reviewed pt chart and met with pt's RN. Pt is from home and is currently on room air. No discharge needs noted at this time. SS will continue to follow for pending discharge needs.
--- NOTE | 2018-09-29 12:59 | HP ---
ADMIT DATE: 09/28/2018 CHIEF COMPLAINT: Chest pain. HISTORY OF PRESENT ILLNESS AND HOSPITAL COURSE: The patient is a 73-year-old male with known history of diabetes and hypertension, came to the Emergency Room with epigastric and right-sided chest pain. The patient also had nausea and vomiting. The patient was seen in ER and had negative cardiac evaluation, but due to risk factors, was admitted for rule out protocol. During early evaluation in the hospital, the patient was found to have an increased white count to 15,000 and elevated transaminases and abdominal ultrasound confirmed evidence of gallbladder wall thickening and small stones or sludge in gallbladder. At this point, the diagnosis of cholecystitis was entertained. General Surgery as well as Cardiology was consulted. The patient was admitted to the hospital for further evaluation. PAST MEDICAL HISTORY: Significant for: 1. Type 2 diabetes. 2. Hypertension. 3. Vitamin D deficiency. MEDICATIONS: The patient's medications are losartan 100 mg daily, metformin 850 b.i.d., Amaryl 4 mg daily, Flexeril 10 mg at bedtime p.r.n., Naprosyn 500 mg b.i.d. p.r.n. FAMILY HISTORY: Significant for mother who with heart disease, father who with complications of TB, a brother who is alive with significant emphysema and cor pulmonale, a sister who was with breast cancer. SOCIAL HISTORY: The patient has a greater than 30-year pack history of smoking, quit smoking in 1979. He is single and lives with his brother. He is currently retired. ALLERGIES: He has no known drug allergies. REVIEW OF SYSTEMS: Significant for nausea, vomiting and epigastric pain. PHYSICAL EXAMINATION: GENERAL: This is a well-nourished, well-developed male, in mild distress. He is alert and oriented x 3. HEENT: Benign. NECK: Supple. CARDIAC: Regular rate and rhythm. LUNGS: Clear. ABDOMEN: Soft with tenderness in the epigastrium and right upper quadrant without rebound or guarding. EXTREMITIES: 2+ pulses. NEUROLOGIC: Intact. ASSESSMENT: 1. Suspected cholecystitis. 2. Chest pain with multiple risk factors. 3. Type 2 diabetes. 4. Acute renal failure. 5. Leukocytosis. 6. Transaminase elevation. PLAN: To proceed with surgery consultation and manage patient's symptoms and proceed with surgery if indicated. Follow up for cardiology evaluation as needed. JONAS CRUZ MD DR: Lottie JOB#: [id number] / [id number]
--- NOTE | 2018-09-29 13:49 | RAD ---
Indication: Abdominal pain. Rule out Choledocholithiasis. TECHNIQUE: MRI and MRCP of the abdomen without IV contrast. COMPARISON: Ultrasound from same day earlier FINDINGS: Heart is normal in size. No pericardial or pleural effusion. Diffuse hepatic steatosis. Liver is normal in morphology without high intensity T2 lesion. Spleen is unenlarged. Gallstones noted. Trace amount of pericholecystic fluid is seen. No intra or extrahepatic biliary duct dilation. No apparent CBD stone seen. Main pancreatic duct is within normal limits. No pancreatic or peripancreatic inflammatory changes. Adrenal glands demonstrate no nodularity. Subcentimeter simple cyst in the right kidney. No hydronephrosis. Diffuse colonic diverticulosis. Normal appendix. Visualized bowel demonstrate no evidence of obstruction. IMPRESSION: 1. No CBD dilation to suggest obstructing stone. 2. Cholelithiasis with trace amount of pericholecystic fluid. Findings may suggest acute cholecystitis is right clinical context. 3. Hepatic steatosis. Electronically signed by: Cortez Mast DO (09/29/2018 1:46 PM) [facility]
[2018-09-29] MEDS ORDERED: MAGNESIUM SULFATE 4GM 100 ML IV ONE (14:00)
[2018-09-29 15:15] VITALS: BP 128/79
[2018-09-29 19:16] VITALS: BP 121/58
[2018-09-29 23:12] LABS: HEMOGLOBIN A1C 7.4 % (4.8-5.6)
[2018-09-29 23:16] VITALS: BP 127/56
[2018-09-30 03:00] VITALS: BP 113/57
[2018-09-30 04:55] LABS: BASO % 1 % (0-3); EOS # 0.1 x10^3/uL (0.0-0.7); EOS % 1 % (0-3); HEMATOCRIT 33.2 % (39.0-53.0); HEMOGLOBIN 11.3 g/dL (13.0-17.5); LYMPH # 1.4 x10^3/uL (1.0-4.8); LYMPH % 18 % (24-48); MEAN CORPUSCULAR HEMOGLOBIN 29 pg (25-35); MEAN CORPUSCULAR HGB CONC 34 g/dL (31-37); MEAN CORPUSCULAR VOLUME 85 fL (79-100); MONO # 0.9 x10^3/uL (0.0-1.1); MONO % 11 % (0-9); NEUT # 5.3 x10^3uL (1.8-7.7); NEUT % 69 % (31-73); PLATELET COUNT 101 x10^3/uL (140-400); RED BLOOD COUNT 3.92 x10^6/uL (4.30-5.70); RED CELL DISTRIBUTION WIDTH 12.9 % (11.5-14.5); WHITE BLOOD COUNT 7.7 x10^3/uL (4.0-11.0)
[2018-09-30 07:00] VITALS: BP 125/66
[2018-09-30] MEDS ORDERED: MORPHINE SULFATE 2 MG/ML VIAL. IV PRN (07:00)
[2018-09-30] MEDS ORDERED: fentaNYL PF VIAL 100 MCG/2 ML VIAL IV PRN ×2 (07:00)
[2018-09-30] MEDS ORDERED: PROCHLORPERAZINE 10 MG/2 ML VIAL. IV PRN (07:00)
[2018-09-30] MEDS ORDERED: LIDOCAINE 1% PF 2 ML VIAL. ID PRN (07:00)
[2018-09-30] MEDS ORDERED: ONDANSETRON PF 4 MG/2 ML VIAL. IV PRN (07:00)
[2018-09-30] MEDS ORDERED: IV RINGERS,LACTATED 1000ML 1,000 ML IV SCH (07:00)
[2018-09-30] MEDS ORDERED: HYDROmorphone 2 MG/ML VIAL IV PRN (07:00)
[2018-09-30] MEDS: INSULIN LISPRO 300 UNITS/3 ML INSULN.PEN. SQ SCH ×5 (07:30→21:00)
[2018-09-30 07:59] LABS: ALBUMIN/GLOBULIN RATIO 0.9 (1.0-1.7); CALCIUM 8.1 mg/dL (8.5-10.1); CREATININE 1.3 mg/dL (0.7-1.3); POTASSIUM 4.1 mmol/L (3.5-5.1); TOTAL BILIRUBIN 5.3 mg/dL (0.2-1.0); TOTAL PROTEIN 6.4 g/dL (6.4-8.2)
[2018-09-30] MEDS ORDERED: BUPIVACAINE-EPI 0.25%-1:200000 MPF 30 ML VIAL. ONE (09:44)
[2018-09-30 11:00] VITALS: BP 140/65
--- NOTE | 2018-09-30 11:46 | NUR ---
SS following up with discharge planning. Pt is from home with brother and is currently requiring oxygen. No PT/OT evaluations at this time. SS will continue to follow for pending discharge needs.
--- NOTE | 2018-09-30 12:27 | PDOC ---
Subjective: Subjective: Tolerating clears w/o abd pain or n/v. Objective: Vital Signs: Vital Signs Date Time Temp Pulse Resp B/P (MAP) Pulse Ox O2 Delivery O2 Flow Rate FiO2 09/30/18 08:00 Nasal Cannula 2.0 09/30/18 07:00 97.9 69 17 125/66 (85) 99 97.9 Labs: Laboratory Tests Test 09/29/18 16:32 09/29/18 20:24 09/30/18 04:38 09/30/18 07:56 Glucose (Fingerstick) 167 mg/dL 151 mg/dL 157 mg/dL White Blood Count 7.7 x10^3/uL Red Blood Count 3.92 x10^6/uL Hemoglobin 11.3 g/dL Hematocrit 33.2 % Mean Corpuscular Volume 85 fL Mean Corpuscular Hemoglobin 29 pg Mean Corpuscular Hemoglobin Concent 34 g/dL Red Cell Distribution Width 12.9 % Platelet Count 101 x10^3/uL Neutrophils (%) (Auto) 69 % Lymphocytes (%) (Auto) 18 % Monocytes (%) (Auto) 11 % Eosinophils (%) (Auto) 1 % Basophils (%) (Auto) 1 % Neutrophils # (Auto) 5.3 x10^3uL Lymphocytes # (Auto) 1.4 x10^3/uL Monocytes # (Auto) 0.9 x10^3/uL Eosinophils # (Auto) 0.1 x10^3/uL Basophils # (Auto) 0.0 x10^3/uL Sodium Level 138 mmol/L Potassium Level 4.1 mmol/L Chloride Level 102 mmol/L Carbon Dioxide Level 24 mmol/L Anion Gap 12 Blood Urea Nitrogen 15 mg/dL Creatinine 1.3 mg/dL Estimated GFR (Cockcroft-Gault) 54.0 BUN/Creatinine Ratio 12 Glucose Level 175 mg/dL Calcium Level 8.1 mg/dL Total Bilirubin 5.3 mg/dL Aspartate Amino Transf (AST/SGOT) 67 U/L Alanine Aminotransferase (ALT/SGPT) 95 U/L Alkaline Phosphatase 71 U/L Total Protein 6.4 g/dL Albumin 3.0 g/dL Albumin/Globulin Ratio 0.9 Lipase 71 U/L Imaging: MRCP IMPRESSION: 1. No CBD dilation to suggest obstructing stone. 2. Cholelithiasis with trace amount of pericholecystic fluid. Findings may suggest acute cholecystitis is right clinical context. 3. Hepatic steatosis. PE: GEN: NAD LUNGS: CTAB HEART: RRR ABD: S/ND/NT NEURO/PSYCH: A & O 3 A/P: Epigastric/substernal pain, n/v - resolved Thrombocytopenia, abnormal LFTs (bili worse), mildly elevated lipase (resolved) Cholelithiasis/?cholecystitis, hepatic steatosis, splenomegaly -- MRCP w/o choledocholithiasis, bili worse today, AST and ALT better, AP remains WNL. Await surgical thoughts. Will r/o viral hepatitis for completeness. KENNY LEOS Sep 30, 2018 12:27
[2018-09-30] MEDS: PANTOPRAZOLE 40 MG TABLET.DR. PO SCH (12:59)
--- NOTE | 2018-09-30 13:02 | PDOC ---
SURGICAL PROGRESS NOTE Subjective Patient much better today no pain Vital Signs Vital Signs Date Time Temp Pulse Resp B/P (MAP) Pulse Ox O2 Delivery O2 Flow Rate FiO2 09/30/18 11:00 97.4 71 18 140/65 (90) 94 Room Air 97.4 09/30/18 08:00 2.0 I&O Intake and Output 09/30/18 07:00 Intake Total 935 ml Balance 935 ml Intake Oral 50 ml IV Total 885 ml # Voids 2 PATIENT HAS A PENG: No General: Alert, Oriented X3, Cooperative, No acute distress Abdomen: Normal bowel sounds, Soft, Other (palpation right upper quadrant) Labs Laboratory Tests Test 09/28/18 16:28 09/28/18 16:54 09/28/18 21:34 09/29/18 03:25 White Blood Count 15.4 x10^3/uL (4.0-11.0) 14.4 x10^3/uL (4.0-11.0) Red Blood Count 4.85 x10^6/uL (4.30-5.70) 4.13 x10^6/uL (4.30-5.70) Hemoglobin 13.8 g/dL (13.0-17.5) 12.0 g/dL (13.0-17.5) Hematocrit 41.2 % (39.0-53.0) 35.3 % (39.0-53.0) Mean Corpuscular Volume 85 fL (79-100) 85 fL (79-100) Mean Corpuscular Hemoglobin 29 pg (25-35) 29 pg (25-35) Mean Corpuscular Hemoglobin Concent 34 g/dL (31-37) 34 g/dL (31-37) Red Cell Distribution Width 13.2 % (11.5-14.5) 13.2 % (11.5-14.5) Platelet Count 181 x10^3/uL (140-400) 127 x10^3/uL (140-400) Neutrophils (%) (Auto) 71 % (31-73) 78 % (31-73) Lymphocytes (%) (Auto) 22 % (24-48) 14 % (24-48) Monocytes (%) (Auto) 5 % (0-9) 8 % (0-9) Eosinophils (%) (Auto) 1 % (0-3) 0 % (0-3) Basophils (%) (Auto) 0 % (0-3) 0 % (0-3) Neutrophils # (Auto) 11.0 x10^3uL (1.8-7.7) 11.3 x10^3uL (1.8-7.7) Lymphocytes # (Auto) 3.4 x10^3/uL (1.0-4.8) 2.0 x10^3/uL (1.0-4.8) Monocytes # (Auto) 0.8 x10^3/uL (0.0-1.1) 1.1 x10^3/uL (0.0-1.1) Eosinophils # (Auto) 0.2 x10^3/uL (0.0-0.7) 0.0 x10^3/uL (0.0-0.7) Basophils # (Auto) 0.1 x10^3/uL (0.0-0.2) 0.0 x10^3/uL (0.0-0.2) Prothrombin Time 14.4 SEC (11.7-14.0) Prothromb Time International Ratio 1.2 (0.8-1.1) Sodium Level 136 mmol/L (136-145) 142 mmol/L (136-145) Potassium Level 5.2 mmol/L (3.5-5.1) 4.0 mmol/L (3.5-5.1) Chloride Level 100 mmol/L (98-107) 106 mmol/L (98-107) Carbon Dioxide Level 25 mmol/L (21-32) 23 mmol/L (21-32) Anion Gap 11 (6-14) 13 (6-14) Blood Urea Nitrogen 18 mg/dL (8-26) 19 mg/dL (8-26) Creatinine 1.6 mg/dL (0.7-1.3) 1.6 mg/dL (0.7-1.3) Estimated GFR (Cockcroft-Gault) 42.5 42.5 BUN/Creatinine Ratio 11 (6-20) 12 (6-20) Glucose Level 258 mg/dL (70-99) 179 mg/dL (70-99) Calcium Level 9.1 mg/dL (8.5-10.1) 8.3 mg/dL (8.5-10.1) Magnesium Level 1.5 mg/dL (1.8-2.4) 1.4 mg/dL (1.8-2.4) Total Bilirubin 2.1 mg/dL (0.2-1.0) 3.4 mg/dL (0.2-1.0) Aspartate Amino Transf (AST/SGOT) 165 U/L (15-37) 135 U/L (15-37) Alanine Aminotransferase (ALT/SGPT) 106 U/L (16-63) 151 U/L (16-63) Alkaline Phosphatase 81 U/L (46-116) 70 U/L (46-116) Creatine Kinase 119 U/L (39-308) Creatine Kinase MB (Mass) 1.9 ng/mL (0.0-3.6) Creatine Kinase MB Relative Index 1.6 % (0-4) Troponin I Quantitative < 0.017 ng/mL (0.000-0.055) < 0.017 ng/mL (0.000-0.055) QT-Hpr-C-Type Natriuretic Peptide 66 pg/mL (0-124) Total Protein 8.3 g/dL (6.4-8.2) 6.8 g/dL (6.4-8.2) Albumin 4.3 g/dL (3.4-5.0) 3.4 g/dL (3.4-5.0) Albumin/Globulin Ratio 1.1 (1.0-1.7) 1.0 (1.0-1.7) Thyroid Stimulating Hormone (TSH) 3.481 uIU/mL (0.358-3.74) Ethyl Alcohol Level < 10 mg/dL (0-10) Influenza Type A Antigen Negative (NEGATIVE) Influenza Type B Antigen Negative (NEGATIVE) Glucose (Fingerstick) 205 mg/dL (70-99) Hemoglobin A1c 7.4 % (4.8-5.6) Triglycerides Level 156 mg/dL (0-150) Cholesterol Level 120 mg/dL (0-200) LDL Cholesterol, Calculated 62 mg/dL (0-100) VLDL Cholesterol, Calculated 31 mg/dL (0-40) Non-HDL Cholesterol Calculated 93 mg/dL (0-129) HDL Cholesterol 27 mg/dL (40-60) Cholesterol/HDL Ratio 4.4 Lipase 483 U/L (73-393) Test 09/29/18 07:36 09/29/18 16:32 09/29/18 20:24 09/30/18 04:38 Glucose (Fingerstick) 158 mg/dL (70-99) 167 mg/dL (70-99) 151 mg/dL (70-99) White Blood Count 7.7 x10^3/uL (4.0-11.0) Red Blood Count 3.92 x10^6/uL (4.30-5.70) Hemoglobin 11.3 g/dL (13.0-17.5) Hematocrit 33.2 % (39.0-53.0) Mean Corpuscular Volume 85 fL (79-100) Mean Corpuscular Hemoglobin 29 pg (25-35) Mean Corpuscular Hemoglobin Concent 34 g/dL (31-37) Red Cell Distribution Width 12.9 % (11.5-14.5) Platelet Count 101 x10^3/uL (140-400) Neutrophils (%) (Auto) 69 % (31-73) Lymphocytes (%) (Auto) 18 % (24-48) Monocytes (%) (Auto) 11 % (0-9) Eosinophils (%) (Auto) 1 % (0-3) Basophils (%) (Auto) 1 % (0-3) Neutrophils # (Auto) 5.3 x10^3uL (1.8-7.7) Lymphocytes # (Auto) 1.4 x10^3/uL (1.0-4.8) Monocytes # (Auto) 0.9 x10^3/uL (0.0-1.1) Eosinophils # (Auto) 0.1 x10^3/uL (0.0-0.7) Basophils # (Auto) 0.0 x10^3/uL (0.0-0.2) Sodium Level 138 mmol/L (136-145) Potassium Level 4.1 mmol/L (3.5-5.1) Chloride Level 102 mmol/L (98-107) Carbon Dioxide Level 24 mmol/L (21-32) Anion Gap 12 (6-14) Blood Urea Nitrogen 15 mg/dL (8-26) Creatinine 1.3 mg/dL (0.7-1.3) Estimated GFR (Cockcroft-Gault) 54.0 BUN/Creatinine Ratio 12 (6-20) Glucose Level 175 mg/dL (70-99) Calcium Level 8.1 mg/dL (8.5-10.1) Total Bilirubin 5.3 mg/dL (0.2-1.0) Aspartate Amino Transf (AST/SGOT) 67 U/L (15-37) Alanine Aminotransferase (ALT/SGPT) 95 U/L (16-63) Alkaline Phosphatase 71 U/L (46-116) Total Protein 6.4 g/dL (6.4-8.2) Albumin 3.0 g/dL (3.4-5.0) Albumin/Globulin Ratio 0.9 (1.0-1.7) Lipase 71 U/L (73-393) Test 09/30/18 07:56 09/30/18 12:16 Glucose (Fingerstick) 157 mg/dL (70-99) 184 mg/dL (70-99) Laboratory Tests Test 09/29/18 16:32 09/29/18 20:24 09/30/18 04:38 09/30/18 07:56 Glucose (Fingerstick) 167 mg/dL (70-99) 151 mg/dL (70-99) 157 mg/dL (70-99) White Blood Count 7.7 x10^3/uL (4.0-11.0) Red Blood Count 3.92 x10^6/uL (4.30-5.70) Hemoglobin 11.3 g/dL (13.0-17.5) Hematocrit 33.2 % (39.0-53.0) Mean Corpuscular Volume 85 fL (79-100) Mean Corpuscular Hemoglobin 29 pg (25-35) Mean Corpuscular Hemoglobin Concent 34 g/dL (31-37) Red Cell Distribution Width 12.9 % (11.5-14.5) Platelet Count 101 x10^3/uL (140-400) Neutrophils (%) (Auto) 69 % (31-73) Lymphocytes (%) (Auto) 18 % (24-48) Monocytes (%) (Auto) 11 % (0-9) Eosinophils (%) (Auto) 1 % (0-3) Basophils (%) (Auto) 1 % (0-3) Neutrophils # (Auto) 5.3 x10^3uL (1.8-7.7) Lymphocytes # (Auto) 1.4 x10^3/uL (1.0-4.8) Monocytes # (Auto) 0.9 x10^3/uL (0.0-1.1) Eosinophils # (Auto) 0.1 x10^3/uL (0.0-0.7) Basophils # (Auto) 0.0 x10^3/uL (0.0-0.2) Sodium Level 138 mmol/L (136-145) Potassium Level 4.1 mmol/L (3.5-5.1) Chloride Level 102 mmol/L (98-107) Carbon Dioxide Level 24 mmol/L (21-32) Anion Gap 12 (6-14) Blood Urea Nitrogen 15 mg/dL (8-26) Creatinine 1.3 mg/dL (0.7-1.3) Estimated GFR (Cockcroft-Gault) 54.0 BUN/Creatinine Ratio 12 (6-20) Glucose Level 175 mg/dL (70-99) Calcium Level 8.1 mg/dL (8.5-10.1) Total Bilirubin 5.3 mg/dL (0.2-1.0) Aspartate Amino Transf (AST/SGOT) 67 U/L (15-37) Alanine Aminotransferase (ALT/SGPT) 95 U/L (16-63) Alkaline Phosphatase 71 U/L (46-116) Total Protein 6.4 g/dL (6.4-8.2) Albumin 3.0 g/dL (3.4-5.0) Albumin/Globulin Ratio 0.9 (1.0-1.7) Lipase 71 U/L (73-393) Test 09/30/18 12:16 Glucose (Fingerstick) 184 mg/dL (70-99) Problem List Problems Medical Problems: (1) Chest pain Status: Acute (2) Nausea and vomiting Status: Acute (3) Transaminitis Status: Acute Assessment/Plan Lipase normal today plan for laparoscopic cholecystectomy tomorrow KAILEE PEÑA MD Sep 30, 2018 13:02
[2018-09-30 15:00] VITALS: BP 135/63
--- NOTE | 2018-09-30 17:12 | PDOC ---
PROGRESS NOTES Subjective Subjective Patient feeling better. Patient surgery postponed due to high lipase. Follow-up lipase pending possible surgery in a.m. if stable. Objective Objective Vital Signs Date Time Temp Pulse Resp B/P (MAP) Pulse Ox O2 Delivery O2 Flow Rate FiO2 09/30/18 15:00 98.4 66 18 135/63 (87) 93 Room Air 98.4 09/30/18 08:00 2.0 Intake and Output 09/30/18 07:00 Intake Total 935 ml Balance 935 ml Intake Oral 50 ml IV Total 885 ml # Voids 2 Physical Exam Abdomen: Normal bowel sounds, Other (mild tender right upper quadrant.) Heart: Regular rate Extremities: No edema General: Alert Lungs: Clear to auscultation Assessment Assessment Problems Medical Problems: (1) Chest pain Status: Acute (2) Nausea and vomiting Status: Acute (3) Transaminitis Status: Acute 1. Cholecystitis. 2. Chest pain with multiple risk factors. 3. Type 2 diabetes. 4. Acute renal failure resolved. Plan Plan of Care Continue supportive care plan for laparoscopic cholecystectomy in a.m. Comment Review of Relevant I have reviewed the following items el (where applicable) has been applied. Labs Laboratory Tests Test 09/28/18 21:34 09/29/18 03:25 09/29/18 07:36 09/29/18 16:32 Glucose (Fingerstick) 205 mg/dL (70-99) 158 mg/dL (70-99) 167 mg/dL (70-99) White Blood Count 14.4 x10^3/uL (4.0-11.0) Red Blood Count 4.13 x10^6/uL (4.30-5.70) Hemoglobin 12.0 g/dL (13.0-17.5) Hematocrit 35.3 % (39.0-53.0) Mean Corpuscular Volume 85 fL (79-100) Mean Corpuscular Hemoglobin 29 pg (25-35) Mean Corpuscular Hemoglobin Concent 34 g/dL (31-37) Red Cell Distribution Width 13.2 % (11.5-14.5) Platelet Count 127 x10^3/uL (140-400) Neutrophils (%) (Auto) 78 % (31-73) Lymphocytes (%) (Auto) 14 % (24-48) Monocytes (%) (Auto) 8 % (0-9) Eosinophils (%) (Auto) 0 % (0-3) Basophils (%) (Auto) 0 % (0-3) Neutrophils # (Auto) 11.3 x10^3uL (1.8-7.7) Lymphocytes # (Auto) 2.0 x10^3/uL (1.0-4.8) Monocytes # (Auto) 1.1 x10^3/uL (0.0-1.1) Eosinophils # (Auto) 0.0 x10^3/uL (0.0-0.7) Basophils # (Auto) 0.0 x10^3/uL (0.0-0.2) Sodium Level 142 mmol/L (136-145) Potassium Level 4.0 mmol/L (3.5-5.1) Chloride Level 106 mmol/L (98-107) Carbon Dioxide Level 23 mmol/L (21-32) Anion Gap 13 (6-14) Blood Urea Nitrogen 19 mg/dL (8-26) Creatinine 1.6 mg/dL (0.7-1.3) Estimated GFR (Cockcroft-Gault) 42.5 BUN/Creatinine Ratio 12 (6-20) Glucose Level 179 mg/dL (70-99) Hemoglobin A1c 7.4 % (4.8-5.6) Calcium Level 8.3 mg/dL (8.5-10.1) Magnesium Level 1.4 mg/dL (1.8-2.4) Total Bilirubin 3.4 mg/dL (0.2-1.0) Aspartate Amino Transf (AST/SGOT) 135 U/L (15-37) Alanine Aminotransferase (ALT/SGPT) 151 U/L (16-63) Alkaline Phosphatase 70 U/L (46-116) Troponin I Quantitative < 0.017 ng/mL (0.000-0.055) Total Protein 6.8 g/dL (6.4-8.2) Albumin 3.4 g/dL (3.4-5.0) Albumin/Globulin Ratio 1.0 (1.0-1.7) Triglycerides Level 156 mg/dL (0-150) Cholesterol Level 120 mg/dL (0-200) LDL Cholesterol, Calculated 62 mg/dL (0-100) VLDL Cholesterol, Calculated 31 mg/dL (0-40) Non-HDL Cholesterol Calculated 93 mg/dL (0-129) HDL Cholesterol 27 mg/dL (40-60) Cholesterol/HDL Ratio 4.4 Lipase 483 U/L (73-393) Test 09/29/18 20:24 09/30/18 04:38 09/30/18 07:56 09/30/18 12:16 Glucose (Fingerstick) 151 mg/dL (70-99) 157 mg/dL (70-99) 184 mg/dL (70-99) White Blood Count 7.7 x10^3/uL (4.0-11.0) Red Blood Count 3.92 x10^6/uL (4.30-5.70) Hemoglobin 11.3 g/dL (13.0-17.5) Hematocrit 33.2 % (39.0-53.0) Mean Corpuscular Volume 85 fL (79-100) Mean Corpuscular Hemoglobin 29 pg (25-35) Mean Corpuscular Hemoglobin Concent 34 g/dL (31-37) Red Cell Distribution Width 12.9 % (11.5-14.5) Platelet Count 101 x10^3/uL (140-400) Neutrophils (%) (Auto) 69 % (31-73) Lymphocytes (%) (Auto) 18 % (24-48) Monocytes (%) (Auto) 11 % (0-9) Eosinophils (%) (Auto) 1 % (0-3) Basophils (%) (Auto) 1 % (0-3) Neutrophils # (Auto) 5.3 x10^3uL (1.8-7.7) Lymphocytes # (Auto) 1.4 x10^3/uL (1.0-4.8) Monocytes # (Auto) 0.9 x10^3/uL (0.0-1.1) Eosinophils # (Auto) 0.1 x10^3/uL (0.0-0.7) Basophils # (Auto) 0.0 x10^3/uL (0.0-0.2) Sodium Level 138 mmol/L (136-145) Potassium Level 4.1 mmol/L (3.5-5.1) Chloride Level 102 mmol/L (98-107) Carbon Dioxide Level 24 mmol/L (21-32) Anion Gap 12 (6-14) Blood Urea Nitrogen 15 mg/dL (8-26) Creatinine 1.3 mg/dL (0.7-1.3) Estimated GFR (Cockcroft-Gault) 54.0 BUN/Creatinine Ratio 12 (6-20) Glucose Level 175 mg/dL (70-99) Calcium Level 8.1 mg/dL (8.5-10.1) Total Bilirubin 5.3 mg/dL (0.2-1.0) Aspartate Amino Transf (AST/SGOT) 67 U/L (15-37) Alanine Aminotransferase (ALT/SGPT) 95 U/L (16-63) Alkaline Phosphatase 71 U/L (46-116) Total Protein 6.4 g/dL (6.4-8.2) Albumin 3.0 g/dL (3.4-5.0) Albumin/Globulin Ratio 0.9 (1.0-1.7) Lipase 71 U/L (73-393) Hepatitis A IgM Antibody Nonreactive (Nonreactive) Hepatitis B Surface Antigen Nonreactive (Nonreactive) Hepatitis B Core IgM Antibody Nonreactive (Nonreactive) Hepatitis C IgG Antibody Nonreactive (Nonreactive) Laboratory Tests Test 09/29/18 20:24 09/30/18 04:38 09/30/18 07:56 09/30/18 12:16 Glucose (Fingerstick) 151 mg/dL (70-99) 157 mg/dL (70-99) 184 mg/dL (70-99) White Blood Count 7.7 x10^3/uL (4.0-11.0) Red Blood Count 3.92 x10^6/uL (4.30-5.70) Hemoglobin 11.3 g/dL (13.0-17.5) Hematocrit 33.2 % (39.0-53.0) Mean Corpuscular Volume 85 fL (79-100) Mean Corpuscular Hemoglobin 29 pg (25-35) Mean Corpuscular Hemoglobin Concent 34 g/dL (31-37) Red Cell Distribution Width 12.9 % (11.5-14.5) Platelet Count 101 x10^3/uL (140-400) Neutrophils (%) (Auto) 69 % (31-73) Lymphocytes (%) (Auto) 18 % (24-48) Monocytes (%) (Auto) 11 % (0-9) Eosinophils (%) (Auto) 1 % (0-3) Basophils (%) (Auto) 1 % (0-3) Neutrophils # (Auto) 5.3 x10^3uL (1.8-7.7) Lymphocytes # (Auto) 1.4 x10^3/uL (1.0-4.8) Monocytes # (Auto) 0.9 x10^3/uL (0.0-1.1) Eosinophils # (Auto) 0.1 x10^3/uL (0.0-0.7) Basophils # (Auto) 0.0 x10^3/uL (0.0-0.2) Sodium Level 138 mmol/L (136-145) Potassium Level 4.1 mmol/L (3.5-5.1) Chloride Level 102 mmol/L (98-107) Carbon Dioxide Level 24 mmol/L (21-32) Anion Gap 12 (6-14) Blood Urea Nitrogen 15 mg/dL (8-26) Creatinine 1.3 mg/dL (0.7-1.3) Estimated GFR (Cockcroft-Gault) 54.0 BUN/Creatinine Ratio 12 (6-20) Glucose Level 175 mg/dL (70-99) Calcium Level 8.1 mg/dL (8.5-10.1) Total Bilirubin 5.3 mg/dL (0.2-1.0) Aspartate Amino Transf (AST/SGOT) 67 U/L (15-37) Alanine Aminotransferase (ALT/SGPT) 95 U/L (16-63) Alkaline Phosphatase 71 U/L (46-116) Total Protein 6.4 g/dL (6.4-8.2) Albumin 3.0 g/dL (3.4-5.0) Albumin/Globulin Ratio 0.9 (1.0-1.7) Lipase 71 U/L (73-393) Hepatitis A IgM Antibody Nonreactive (Nonreactive) Hepatitis B Surface Antigen Nonreactive (Nonreactive) Hepatitis B Core IgM Antibody Nonreactive (Nonreactive) Hepatitis C IgG Antibody Nonreactive (Nonreactive) Medications Current Medications Aspirin (Bobbi Aspirin) 325 mg 1X ONCE PO ; Start 09/28/18 at 16:30; Stop 09/28 at 16:42; Status DC Nitroglycerin (Nitrostat) 0.4 mg PRN Q5MIN PRN SL CP RATING > 1/10 Last administered on 09/28/18at 16:35; Start 09/28/18 at 16:30; Stop 09/28/18 at 19:38 ; Status DC Ondansetron HCl (Zofran) 4 mg 1X ONCE IV Last administered on 09/28/18at 16:34 ; Start 09/28/18 at 16:30; Stop 09/28/18 at 16:42; Status DC Sodium Chloride 1,000 ml @ 1,000 mls/hr 1X ONCE IV Last administered on at 16:47; Start 09/28/18 at 16:45; Stop 09/28/18 at 17:44; Status DC Aspirin (Children'S Aspirin) 324 mg 1X ONCE PO Last administered on 09/28/18at 16:45; Start 09/28/18 at 16:45; Stop 09/28/18 at 16:46; Status DC Ondansetron HCl (Zofran) 4 mg PRN Q8HRS PRN IV NAUSEA/VOMITING; Start 09/28/18 at 19:45; Stop 09/29/18 at 19:46; Status DC Morphine Sulfate (Morphine Sulfate) 4 mg PRN Q2HR PRN IV PAIN; Start 09/28/18 at 19:45; Stop 09/29/18 at 19:46; Status DC Nitroglycerin (Nitrostat) 0.4 mg PRN Q5MIN PRN SL CHEST PAIN; Start 09/28/18 at 19:45; Stop 09/29/18 at 19:46; Status DC Insulin Human Lispro (HumaLOG) 0-5 UNITS TIDWMEALS SQ ; Start 09/29/18 at 08:00 ; Stop 09/29/18 at 08:00; Status DC Dextrose (Dextrose 50%-Water Syringe) 12.5 gm PRN Q15MIN PRN IV SEE COMMENTS; Start 09/28/18 at 19:45 Sodium Chloride 1,000 ml @ 125 mls/hr 1X ONCE IV Last administered on at 20:55; Start 09/28/18 at 20:00; Stop 09/29/18 at 03:59; Status DC Insulin Human Lispro (HumaLOG) 0-12 UNITS QIDACHS SQ Last administered on at 13:06; Start 09/29/18 at 07:30 Sodium Chloride 1,000 ml @ 100 mls/hr Q10H IV Last administered on 09/29/18at 07:28; Start 09/29/18 at 06:00; Stop 09/29/18 at 15:59; Status DC Magnesium Sulfate/ Dextrose 100 ml @ 25 mls/hr 1X ONCE IV Last administered on 09/29/18at 13:56; Start 09/29/18 at 14:00; Stop 09/29/18 at 17:59; Status DC Ondansetron HCl (Zofran) 4 mg PRN Q6HRS PRN IV NAUSEA/VOMITING; Start 09/30/18 at 07:00; Stop 09/30/18 at 20:00 Fentanyl Citrate (Fentanyl 2ml Vial) 25 mcg PRN Q5MIN PRN IV MILD PAIN; Start 09/30/18 at 07:00; Stop 09/30/18 at 20:00 Fentanyl Citrate (Fentanyl 2ml Vial) 50 mcg PRN Q5MIN PRN IV MODERATE TO SEVERE PAIN; Start 09/30/18 at 07:00; Stop 09/30/18 at 20:00 Morphine Sulfate (Morphine Sulfate) 1 mg PRN Q10MIN PRN IV SEVERE PAIN; Start 09/30/18 at 07:00; Stop 09/30/18 at 20:00 Ringer's Solution 1,000 ml @ 30 mls/hr Q24H IV ; Start 09/30/18 at 07:00; Stop 09/30/18 at 18:59 Lidocaine HCl (Xylocaine-Mpf 1% 2ml Vial) 2 ml PRN 1X PRN ID PRIOR TO IV START ; Start 09/30/18 at 07:00; Stop 09/30/18 at 20:00 Hydromorphone HCl (Dilaudid) 0.5 mg PRN Q10MIN PRN IV SEV PAIN, Second choice; Start 09/30/18 at 07:00; Stop 09/30/18 at 20:00 Prochlorperazine Edisylate (Compazine) 5 mg PACU PRN PRN IV NAUSEA, MRX1; Start 09/30/18 at 07:00; Stop 09/30/18 at 20:00 Bupivacaine HCl/ Epinephrine Bitart (Sensorcaine-Epi 0.25%-1:197332 Mpf) 30 ml STK-MED ONCE .ROUTE ; Start 09/30/18 at 09:44; Stop 09/30/18 at 10:44; Status DC Pantoprazole Sodium (Protonix) 40 mg DAILYAC PO Last administered on 09/30/18at 12:59; Start 09/30/18 at 13:00 Active Scripts Active Reported Glimepiride 4 Mg Tablet 1 Tab PO DAILY Metformin Hcl 850 Mg Tablet 850 Mg PO BIDWMEALS Losartan Potassium 100 Mg Tablet 100 Mg PO DAILY Vitals/I & O Vital Sign - Last 24 Hours 09/29/18 09/29/18 09/29/18 09/30/18 19:16 19:50 23:16 03:00 Temp 100.0 99.6 99.9 100.0 99.6 99.9 Pulse 79 77 75 Resp B/P (MAP) 121/58 (79) 127/56 (79) 113/57 (75) Pulse Ox 99 97 99 O2 Delivery Room Air Nasal Cannula Nasal Cannula Nasal Cannula O2 Flow Rate 2.0 2.0 2.0 2.0 09/30/18 09/30/18 09/30/18 09/30/18 07:00 08:00 11:00 15:00 Temp 97.9 97.4 98.4 97.9 97.4 98.4 Pulse 69 71 66 Resp 18 B/P (MAP) 125/66 (85) 140/65 (90) 135/63 (87) Pulse Ox 99 94 93 O2 Delivery Nasal Cannula Nasal Cannula Room Air Room Air O2 Flow Rate 2.0 2.0 Intake and Output 09/29/18 09/29/18 09/30/18 15:00 23:00 07:00 Intake Total 885 ml 50 ml Balance 885 ml 50 ml JONAS CRUZ MD Sep 30, 2018 17:12
[2018-09-30 19:00] VITALS: BP 169/75
[2018-09-30 23:21] VITALS: BP 157/67
[2018-10-01] VITALS (15 sets, daily range): BP systolic 129–190; BP diastolic 60–88
[2018-10-01 05:20] LABS: HEMATOCRIT 33.3 % (39.0-53.0); HEMOGLOBIN 11.4 g/dL (13.0-17.5); RED BLOOD COUNT 3.93 x10^6/uL (4.30-5.70); RED CELL DISTRIBUTION WIDTH 12.7 % (11.5-14.5); WHITE BLOOD COUNT 6.1 x10^3/uL (4.0-11.0)
[2018-10-01 05:56] LABS: ALBUMIN 2.8 g/dL (3.4-5.0); DIRECT BILIRUBIN 2.5 mg/dL (0.0-0.2); TOTAL BILIRUBIN 3.5 mg/dL (0.2-1.0); TOTAL PROTEIN 6.5 g/dL (6.4-8.2)
[2018-10-01] MEDS: INSULIN LISPRO 300 UNITS/3 ML INSULN.PEN. SQ SCH ×4 (07:30→21:00)
[2018-10-01] MEDS ORDERED: PROPOFOL 20 ML IV ONE (09:19)
[2018-10-01] MEDS ORDERED: LIDOCAINE 2% PF 5 ML VIAL. ONE (09:19)
[2018-10-01] MEDS ORDERED: DEXAMETHASONE SOD PHOS 20 MG/5 ML VIAL. ONE (09:19)
[2018-10-01] MEDS ORDERED: ONDANSETRON PF 4 MG/2 ML VIAL. ONE (09:19)
[2018-10-01] MEDS ORDERED: ROCURONIUM 50 MG/5 ML VIAL. ONE (09:20)
[2018-10-01] MEDS ORDERED: fentaNYL PF VIAL 100 MCG/2 ML VIAL ONE (09:20)
[2018-10-01] MEDS ORDERED: SURGICEL HEMOSTAT 4X8 EACH. ONE (11:01)
[2018-10-01] MEDS ORDERED: BUPIVAC MPF-EPI 0.5%-1:200000 30 ML VIAL. ONE (11:01)
[2018-10-01] MEDS ORDERED: EPINEPHrine 1 MG/ML VIAL ONE (12:24)
[2018-10-01] MEDS ORDERED: NEOSTIGMINE 10 MG/10 ML VIAL. ONE (12:46)
[2018-10-01] MEDS ORDERED: GLYCOPYRROLATE 1 MG/5 ML VIAL. ONE (12:47)
--- NOTE | 2018-10-01 13:01 | PDOC4 ---
Operative Note Operative Note Date: 10/01/2018 Preoperative diagnosis: Cholecystitis Postoperative diagnosis: Same Procedure: Laparoscopic cholecystectomy Surgeon: Gee Specimen: Gallbladder Dictation: Patient is a 73-year-old gentleman was made in the hospital with epigastric and chest pain cardiac workup was negative ultrasound of his right upper quadrant showed thickened gallbladder wall with gallstones. The procedure of laparoscopic cholecystectomy was explained to the patient detail risk benefits were also discussed including bleeding infection injury to intra- abdominal contents possibly necessitating further open operations alternatives to this procedure also discussed with the patient who seemed to understand and gave both verbal and written consent had the procedure performed. Patient was taken to the operating room placed in supine position general anesthesia was initiated once patient was sleep and intubated abdomen was prepped and draped usual sterile fashion using ChloraPrep and area just below the umbilicus was injected with quarter percent Marcaine with epinephrine incision was zoya blade scalpel varies needle was placed within the abdomen creating pneumoperitoneum once this was complete a 11 mm port was placed and a 5 mm camera was placed within the abdomen which was inspected no other abnormalities were noted. A 5 mm port was placed in the epigastrium a 5 mm port was placed in the right lateral abdomen and one in the right mid abdomen all under direct visualization the dome of the gallbladder was grasped and retracted cephalad the infundibulum of the gallbladder is grasped and retracted laterally exposing the triangle. The adherent tissues of the triangle were taken down with blunt and sharp dissection exposing the cystic duct and cystic artery both were doubly clipped and transected the gallbladder was taken off the liver with a clot cautery placed in Endo Catch bag and removed from the umbilicus right upper quadrant was irrigated and suctioned dry hemostasis was deemed to be appropriate and the pneumoperitoneum was reduced all the ports were removed and the fascial defect at the umbilicus was closed [id number] Vicryl suture and the skin was reapproximated all port sites with 40 subarticular Monocryl Mastisol Steri- Strips and island dressings were applied. The patient was awakened and extubated in the operating room taken to recovery in stable condition all sponge instrument needle counts listed as correct estimated blood loss 10 mL. KAILEE PEÑA MD Oct 01, 2018 13:01
--- NOTE | 2018-10-01 13:06 | PDOC ---
Objective: Vital Signs: Vital Signs Date Time Temp Pulse Resp B/P (MAP) Pulse Ox O2 Delivery O2 Flow Rate FiO2 10/01/18 09:34 98.2 58 15 147/64 100 Nasal Cannula 98.2 10/01/18 07:00 2.0 Labs: Laboratory Tests Test 09/30/18 17:03 09/30/18 20:58 10/01/18 04:56 10/01/18 07:23 Glucose (Fingerstick) 149 mg/dL 167 mg/dL 156 mg/dL White Blood Count 6.1 x10^3/uL Red Blood Count 3.93 x10^6/uL Hemoglobin 11.4 g/dL Hematocrit 33.3 % Mean Corpuscular Volume 85 fL Mean Corpuscular Hemoglobin 29 pg Mean Corpuscular Hemoglobin Concent 34 g/dL Red Cell Distribution Width 12.7 % Platelet Count 106 x10^3/uL Total Bilirubin 3.5 mg/dL Direct Bilirubin 2.5 mg/dL Aspartate Amino Transf (AST/SGOT) 48 U/L Alanine Aminotransferase (ALT/SGPT) 77 U/L Alkaline Phosphatase 74 U/L Total Protein 6.5 g/dL Albumin 2.8 g/dL PE: out of room A/P: Cholelithiasis Elevated LFTs - better Hepatic steatosis -- Will follow after surgery. KENNY LEOS Oct 01, 2018 13:06
[2018-10-01] MEDS ORDERED: oxyCODONE/APAP 5/325 1 TAB TABLET PO PRN (13:15)
--- NOTE | 2018-10-01 14:30 | NUR ---
Patient back from surgery. Patient A&O, a little drowsy. Patient complains of a dry throat which does sound a little scratchy. Frequent VS set. Placed back on telemetry monitor. 2L O2 NC placed on patient. No complaints of pain at this time. 4 lap sites' dressings CDI. Ice given to patient. Family at bedside. Will continue to monitor.
[2018-10-01] MEDS: PANTOPRAZOLE 40 MG TABLET.DR. PO SCH (17:55)
[2018-10-01] MEDS: oxyCODONE/APAP 5/325 1 TAB TABLET PO PRN ×2 (17:55→22:42)
[2018-10-02 03:28] VITALS: BP 142/64
[2018-10-02 07:00] VITALS: BP 136/69
[2018-10-02] MEDS: PANTOPRAZOLE 40 MG TABLET.DR. PO SCH (08:25)
[2018-10-02] MEDS: INSULIN LISPRO 300 UNITS/3 ML INSULN.PEN. SQ SCH ×2 (08:30→12:26)
--- NOTE | 2018-10-02 08:59 | PDOC ---
SURGICAL PROGRESS NOTE Subjective Patient doing quite well this morning little bit of abdominal soreness otherwise tolerating diet Vital Signs Vital Signs Date Time Temp Pulse Resp B/P (MAP) Pulse Ox O2 Delivery O2 Flow Rate FiO2 10/02/18 08:00 Room Air 10/02/18 07:00 98.1 64 18 136/69 (91) 94 98.1 10/01/18 23:42 2.0 I&O Intake and Output 10/02/18 06:59 # Voids 3 PATIENT HAS A PENG: No General: Alert, Oriented X3, Cooperative, No acute distress Abdomen: Normal bowel sounds, Soft, No tenderness, Other (wounds clean dry and intact) Labs Laboratory Tests Test 09/30/18 12:16 09/30/18 17:03 09/30/18 20:58 10/01/18 04:56 Glucose (Fingerstick) 184 mg/dL (70-99) 149 mg/dL (70-99) 167 mg/dL (70-99) White Blood Count 6.1 x10^3/uL (4.0-11.0) Red Blood Count 3.93 x10^6/uL (4.30-5.70) Hemoglobin 11.4 g/dL (13.0-17.5) Hematocrit 33.3 % (39.0-53.0) Mean Corpuscular Volume 85 fL (79-100) Mean Corpuscular Hemoglobin 29 pg (25-35) Mean Corpuscular Hemoglobin Concent 34 g/dL (31-37) Red Cell Distribution Width 12.7 % (11.5-14.5) Platelet Count 106 x10^3/uL (140-400) Total Bilirubin 3.5 mg/dL (0.2-1.0) Direct Bilirubin 2.5 mg/dL (0.0-0.2) Aspartate Amino Transf (AST/SGOT) 48 U/L (15-37) Alanine Aminotransferase (ALT/SGPT) 77 U/L (16-63) Alkaline Phosphatase 74 U/L (46-116) Total Protein 6.5 g/dL (6.4-8.2) Albumin 2.8 g/dL (3.4-5.0) Test 10/01/18 07:23 10/01/18 14:41 10/01/18 16:54 10/01/18 20:55 Glucose (Fingerstick) 156 mg/dL (70-99) 191 mg/dL (70-99) 214 mg/dL (70-99) 335 mg/dL (70-99) Test 10/02/18 07:17 Glucose (Fingerstick) 259 mg/dL (70-99) Laboratory Tests Test 10/01/18 14:41 10/01/18 16:54 10/01/18 20:55 10/02/18 07:17 Glucose (Fingerstick) 191 mg/dL (70-99) 214 mg/dL (70-99) 335 mg/dL (70-99) 259 mg/dL (70-99) Problem List Problems Medical Problems: (1) Chest pain Status: Acute (2) Nausea and vomiting Status: Acute (3) Transaminitis Status: Acute Assessment/Plan Status post laparoscopic cholecystectomy doing quite well Okay to discharge home from surgical standpoint Follow-up with Dr. Peña in 2 weeks maintain low fat diet KAILEE PEÑA MD Oct 02, 2018 08:59
[2018-10-02 10:54] VITALS: BP 127/59
[2018-10-02] MEDS: oxyCODONE/APAP 5/325 1 TAB TABLET PO PRN (11:50)
[2018-10-02] MEDS ORDERED: BISACODYL 5 MG TABLET.DR. PO ONE (12:15)
--- NOTE | 2018-10-02 12:18 | PDOC ---
Subjective: Subjective: Right-sided pain after showering. Tolerating PO, passing gas, hasn't stooled and would like help. asks for pain meds for him. Objective: Objective: Reviewed w/ RN - ?DC today, has c/o right-sided pain - declined pain meds when offered. Vital Signs: Vital Signs Date Time Temp Pulse Resp B/P (MAP) Pulse Ox O2 Delivery O2 Flow Rate FiO2 10/02/18 11:50 Room Air 10/02/18 10:54 98.0 84 17 127/59 (81) 93 98.0 10/01/18 23:42 2.0 Labs: Laboratory Tests Test 10/01/18 14:41 10/01/18 16:54 10/01/18 20:55 10/02/18 07:17 Glucose (Fingerstick) 191 mg/dL (70-99) 214 mg/dL (70-99) 335 mg/dL (70-99) 259 mg/dL (70-99) Test 10/02/18 12:00 Glucose (Fingerstick) 258 mg/dL (70-99) PE: GEN: NAD LUNGS: CTAB HEART: RRR ABD: BS+, mildly tender RUQ NEURO/PSYCH: A & O 3 A/P: S/p cholecystectomy Elevated LFTs -- DC per primary/surgery. Recheck LFTs, add Miralax and Dulcolax. Follow-up for screening colonoscopy as outpt. KENNY LEOS Oct 02, 2018 12:18
[2018-10-02 12:23] LABS: ALBUMIN 3.2 g/dL (3.4-5.0); DIRECT BILIRUBIN 1.5 mg/dL (0.0-0.2); TOTAL BILIRUBIN 2.1 mg/dL (0.2-1.0); TOTAL PROTEIN 6.4 g/dL (6.4-8.2)
[2018-10-02] MEDS ORDERED: POLYETHYLENE GLYCOL 3350 17 GM PACKET. PO SCH (12:30)
--- NOTE | 2018-10-02 12:44 | NUR ---
SS following up with discharge planning. Pt is currently on room air. No discharge needs noted at this time. SS will continue to follow for pending discharge needs.
[2018-10-02] MEDS ORDERED: HYDR-3164 PO (12:55)
[2018-10-02] MEDS ORDERED: Pantoprazole PO (12:55)
--- NOTE | 2018-10-02 14:41 | NUR ---
Discharge Note: RICHARD BAIRD Discharge instructions and discharge home medications reviewed with Patient and a copy given. All questions have been answered and understanding verbalized. The following instructions and handouts were given: low fat diet and post lap suraj Discontinued lines and drains: Peripheral IV x2 removed, cather tip in-tact. Patient discharged to Home or Self Care with Family Member via Wheelchair
--- NOTE | 2018-10-02 17:41 | DS ---
DATE OF DISCHARGE: 10/02/2018 ADMITTING DIAGNOSIS: Chest pain. SECONDARY DIAGNOSIS: Cholecystitis. HISTORY OF PRESENT ILLNESS AND HOSPITAL COURSE: This patient was a 73-year-old male with multiple medical risk factors of diabetes, hypertension, came in with chest pain, which proved to be epigastric pain, abdominal sonogram revealed evidence of cholecystitis. Cardiac workup was negative and Surgery was consulted. The patient did have a high lipase, which delayed surgery for 24 hours, but stabilized and the patient underwent uneventful laparoscopic cholecystectomy without complications. On postop day #1, the patient was tolerating diet and had good pain control. Therefore, he was discharged to home on the following medications: Lortab 5 one to two q.4 hours p.r.n. pain, Protonix 40 mg daily, glimepiride 4 mg daily, losartan 100 mg daily, metformin 850 mg b.i.d. He will follow up in the family practice clinic for recheck of labs and evaluation of abdominal pain and diabetes. JONAS CRUZ MD DR: [facility]/juliet JOB#: [id number] / [id number]
--- NOTE | 2018-10-03 15:06 | PATHOLOGY ---
[facility] Accession Number: [id number] . 01 Material submitted: . GALLBLADDER . 01 Clinical history: . Cholelithiasis . 02 Diagnosis: Gallbladder, cholecystectomy: - Cholelithiasis. - Chronic follicular and focal early mild acute cholecystitis ([facility] 10/03/2018) [facility]/10/03/2018 . 02 Comment: There is no evidence of malignancy. ([facility] 10/03/2018) . 02 Electronically signed: . Surjit Haider MD, Pathologist NPI- [id number] . 01 Gross description: . Received in formalin labeled "Nissa, Jet, gallbladder," is an intact gallbladder measuring 7.9 x 3.3 x 2.5 cm in greatest dimensions. The serosal surface is smooth to shaggy and dark green to dusky coyle-gutierrez in appearance. A single pinpoint defect is noted in the serosal surface (inked black), extending to within 5.8 cm of the infundibulum. Opening the specimen reveals a granular, dark green mucosa measuring 0.1 cm in thickness with a gallbladder wall thickness of 0.2 cm. No polyps or nodules are noted grossly. Calculi are present within the specimen that are black and granular in appearance, ranging from 0.3 to 0.6 cm in maximum dimension. Maintenance Planner sections of the infundibulum, body and fundus are submitted in cassette A1, to include the aforementioned serosal surface defect. ([facility]; 10/02/2018) XDC/XDC . 02 Pathologist provided ICD-10: K80.20, K81.2 . 02 CPT . 458927 Specimen Comment: A courtesy copy of this report has been sent to Specimen Comment: [phone], , . Specimen Comment: Report sent to ,DR CRUZ / DR LARES Specimen Comment: A duplicate report has been generated due to demographic updates. Performed at: 01 [facility] [address] [id number] MD Rafat Taylor MD Phone: [phone] Performed at: 02 [facility] [address] [place], [place] [id number] MD Surjit Haider MD Phone: [phone]
--- NOTE | 2018-10-10 15:37 | RESP ---
DATE OF SERVICE: 10/01/2018 ATTENDING PHYSICIAN: Riki Rees MD. The patient underwent a nocturnal desaturation study on room air, performed on 10/01. Total time recorded was 7 hours and 23 minutes. Total time spent between 80% and 90% was 1 hour and 3 minutes. There was minimal amount of desaturation below 88%. IMPRESSION: 1. Abnormal nocturnal desaturation study on room air. 2. If clinically warranted, recommend a polysomnogram. ANJANA CASTANO MD DR: ANDRÉS/juliet JOB#: [id number] / [id number]
== END 2018-10-02 15:00 | disposition home or self-care (01) | DRG 417 ==
LOC: ER 15:56 → 2 NORTH 19:30
PROVIDERS: ADMIT Family Medicine; ATTEND Family Medicine
PROC: 0FT44ZZ Resection of Gallbladder, Percutaneous Endoscopic Approach (ICD-10-PCS; principal; 2018-10-01 10:00)
DX: K80.10 Calculus of gallbladder with chronic cholecystitis without obstruction (principal); N17.0 Acute kidney failure with tubular necrosis; K21.9 Gastro-esophageal reflux disease without esophagitis; I10 Essential (primary) hypertension; E11.9 Type 2 diabetes mellitus without complications; E83.42 Hypomagnesemia; K76.0 Fatty (change of) liver, not elsewhere classified; M19.90 Unspecified osteoarthritis, unspecified site; Z82.49 Family history of ischemic heart disease and other diseases of the circulatory system; Z82.5 Family history of asthma and other chronic lower respiratory diseases; Z80.3 Family history of malignant neoplasm of breast; Z87.891 Personal history of nicotine dependence
CPT/HCPCS: 36415; 71045; 74181; 76700; 80053; 80061; 80076; 82553; 82962; 83036; 83690; 83735; 83880; 84443; 84484; 85025; 85027; 85610; 86705; 86709; 86803; 87340; 87804; 88304; 93005; 94799; 96361; 96374; A7015; G0480; J0171; J0696; J1100; J1815; J2001; J2405; J2704; J2710; J3010; J3475; J3490; J7030; 99285-25

== ENCOUNTER → 2018-12-29 | Outpatient (CLI) | payer OTHER ==
[~2018-12-29] MED LIST: GLIM4TAB2 PO; HYDR-3164 PO; LOSA100T14 PO; METF850T8 PO; Pantoprazole PO
--- NOTE | 2018-12-29 14:11 | CARD ---
MR#: [id number] Date of Study: 12/29/2018 Ordering Physician: CLAIRE CAMERON, Referring Physician: CLAIRE CAMERON, Tech: Odilia Lang KASSIDY APPROVED REPORT EXAM: Two-dimensional and M-mode echocardiogram with Doppler and color Doppler. Other Information Quality : AverageHR: 65bpm Rhythm : NSR INDICATION Hypertension/HCVD 2D DIMENSIONS RVDd3.1 (2.9-3.5cm)Left Atrium(2D)3.2 (1.6-4.0cm) IVSd1.3 (0.7-1.1cm)Aortic Root(2D)3.2 (2.0-3.7cm) LVDd4.4 (3.9-5.9cm)LVOT Diameter2.1 (1.8-2.4cm) PWd1.1 (0.7-1.1cm)LVDs2.8 (2.5-4.0cm) FS (%) 36.6 %SV58.7 ml LVEF(%)65.0 (>50%) M-Mode DIMENSIONS Left Atrium(MM)3.34 (2.5-4.0cm)Aortic Root3.26 (2.2-3.7cm) Aortic Valve AoV Peak Dawood.127.0cm/sAoV VTI23.1cm AO Peak GR.6.4mmHgLVOT Peak Dawood.96.9cm/s AO Mean GR.3mmHgAVA (VMAX)2.73cm2 GOPAL (VTI)2.70cm2 Mitral Valve MV E Qhrdrcgb01.7cm/sMV E Peak Gr.5mmHg MV DECEL [id number] A Amubvdhb52.2cm/s MV E Mean Gr.1mmHgE/A Ratio0.9 Pulmonary Valve PV Peak Dhaxrcof44.0cm/s Pulmonary Vein S1 Zieyrurd53.1cm/sD2 Zqqfneme35.7cm/s PVa [id number] LEFT VENTRICLE The left ventricle is normal size. There is mild concentric left ventricular hypertrophy. The left ve ntricular systolic function is normal. The Ejection Fraction is 60-65%. There is normal LV segmental wall motion. Transmitral Doppler flow pattern is Grade I-abnormal relaxation pattern. RIGHT VENTRICLE The right ventricle is normal size. There is normal right ventricular wall thickness. The right ventr icular systolic function is normal. ATRIA The left atrium size is normal. The right atrium size is normal. The interatrial septum is intact wit h no evidence for an atrial septal defect or patent foramen ovale as noted on 2-D or Doppler imaging. AORTIC VALVE The aortic valve is normal in structure and function. The aortic valve is trileaflet. Doppler and Col or Flow revealed no significant aortic regurgitation. There is no significant aortic valvular stenosi s. There is no aortic valvular vegetation. MITRAL VALVE The mitral valve is normal in structure and function. There is no evidence of mitral valve prolapse. There is no mitral valve stenosis. Doppler and Color Flow revealed no mitral valve regurgitation note d. TRICUSPID VALVE The tricuspid valve is normal in structure and function. Doppler and Color Flow revealed no tricuspid valve regurgitation noted. There is no tricuspid valve prolapse or vegetation. There is no tricuspid valve stenosis. PULMONIC VALVE The pulmonic valve is not well visualized. GREAT VESSELS The aortic root is normal in size. The ascending aorta is normal in size. The IVC is normal in size a nd collapses >50% with inspiration. PERICARDIAL EFFUSION There is no evidence of significant pericardial effusion. Critical Notification Critical Value: No <Conclusion> The left ventricular systolic function is normal. The Ejection Fraction is 60-65%. There is normal LV segmental wall motion. Transmitral Doppler flow pattern is Grade I-abnormal relaxation pattern. No significant valvular abnormalities. There is no evidence of significant pericardial effusion. Signed by : Evans Martini, Electronically Approved : 12/29/2018 14:10:37
== END | disposition home or self-care (01) ==
LOC: ECHO 12:30
PROVIDERS: ATTEND Internal Medicine Cardiovascular Disease
DX: I11.0 Hypertensive heart disease with heart failure (principal)
CPT/HCPCS: 93306